=== PATIENT | male | born 1975 | race Caucasian/White ===

== ENCOUNTER 2017-02-18 11:12 | Emergency (ER) | payer BC ==
[~2017-02-18] VITALS: Ht 182.9 cm; Wt 117.3 kg
[~2017-02-18 11:12] MED LIST: INSDGIPEN SC; INSU100I17 SC
[2017-02-18 11:15] VITALS: TEMP 36.5; Ht 182.9 cm; Wt 117.3 kg
[2017-02-18] MEDS ORDERED: INSPMPHMLG (11:27)
--- NOTE | 2017-02-18 12:04 | DIAGNOSTIC IMAGING REPORT ---
LEFT SHOULDER 3 VIEWS CLINICAL HISTORY: Left shoulder pain. No reported history of trauma. FINDINGS: 3 views of left shoulder are obtained. No prior studies are available for comparison at the time of dictation. The skeletal structures are well mineralized. No fracture or dislocation is seen. The glenohumeral and acromioclavicular joints appear preserved. The overlying soft tissues are within normal limits. Imaged left apical lung parenchyma appears clear. IMPRESSION: No acute bony abnormality is identified in the left shoulder. Electronically signed by: Kameron Dasilva M.D. 02/18/2017 12:02 PM Dictated Date/Time: 02/18/2017 12:01 PM
[2017-02-18 12:55] VITALS: BP 154/90; PULSE 84; O2SAT 97
--- NOTE | 2017-02-18 13:37 | EMERGENCY ROOM VISIT NOTE ---
History First contact with patient: 11:20 Chief Complaint: SHOULDER PAIN Stated Complaint: LEFT SHOULDER PAIN History of Present Illness The patient is a 42 year old male who presents to the Emergency Room with complaints of a left shoulder injury this morning around 6 AM at work. The patient was lying on the ground on his right side, and when he rolled over to use his left arm to stand up, he reports a sudden sharp pain in the top and posterior aspect of the shoulder. The patient reports that the pain has progressively worsened throughout the day, and currently rates his pain an 8 out of 10. He denies any seizures patient is or numbness of the left upper extremity. He denies any neck or back pain. The patient is mostly left hand dominant, but is ambidextrous in most activities. Review of Systems 10 system review was performed and was negative except for pertinent positives and negatives as indicated in history of present illness Family History FH: cancer FH: diabetes mellitus FH: heart disease Social History Smoking Status: Never Smoker Alcohol Use: occasionally Marital Status: Housing Status: lives with family Occupation Status: employed Current/Historical Medications Scheduled Insulin Human Lispro (Insulin Humalog Pump ), 1 EA N/A UD Allergies Coded Allergies: No Known Allergies (Unverified , 02/18/17) Physical Exam Vital Signs Date Time Temp Pulse Resp B/P Pulse Ox O2 Delivery O2 Flow Rate FiO2 02/18/17 12:55 84 16 154/90 97 02/18/17 11:15 36.5 89 20 144/85 97 Room Air Physical Exam CONSTITUTIONAL: Healthy and well nourished. Alert and oriented X 3 with positive affect. Patient does not appear in any acute distress. He was sleeping prior to my exam. HEENT: Normocephalic, atraumatic. Pupils equal, round and reactive. NECK: Full active range of motion without discomfort. RESPIRATORY: Clear to auscultation bilaterally with no wheezing, crackles, rhonchi or stridor. CARDIOVASCULAR: Regular rate and rhythm with no murmurs, rubs or gallops. MUSCULOSKELETAL: Examination of the left shoulder does not show any obvious edema or ecchymosis. He is generally tender across the acromioclavicular joint and posterior shoulder region. No focal tenderness through the bicipital groove or biceps musculature. Gentle range of motion does not worsen his discomfort. The patient has full passive range of motion, with active range of motion of approximately 90 of abduction and fourth flexion without significant discomfort. No tenderness to palpation through the triceps. Distal pulses are intact. Equal hand atm servicer bilaterally. INTEGUMENTARY: No rash or other significant dermatologic conditions noted. NEUROLOGIC: Left hand and fingers are sensory intact. Medical Decision & Procedures ER Provider Diagnostic Interpretation: My interpretation of left shoulder x-rays does not show any acute fractures, dislocation or significant degenerative change. Radiologist report is as follows: LEFT SHOULDER 3 VIEWS CLINICAL HISTORY: Left shoulder pain. No reported history of trauma. FINDINGS: 3 views of left shoulder are obtained. No prior studies are available for comparison at the time of dictation. The skeletal structures are well mineralized. No fracture or dislocation is seen. The glenohumeral and acromioclavicular joints appear preserved. The overlying soft tissues are within normal limits. Imaged left apical lung parenchyma appears clear. IMPRESSION: No acute bony abnormality is identified in the left shoulder. ED Course Patient history and physical exam were performed. Nurse's notes were reviewed. The patient refused any analgesics while in the emergency department. X-rays of the left shoulder were normal. The patient was advised that history and clinical exam findings are consistent with a shoulder strain. He was encouraged to intermittently apply ice to the shoulder. Gentle range of motion exercises to prevent stiffness. Ibuprofen and Tylenol in alternating fashion as needed for additional pain relief. The patient was provided a note for light duty, and encouraged to follow up with his Worker's Compensation approved orthopedic surgeon if symptoms are not significantly improving within the next 2 -3 days. The patient was happy with plan of care, voice understanding of all discharge instructions, and rated his pain a 5 out of 10 at the conclusion of my exam. Medical Decision Impression Primary Impression: Left shoulder strain Additional Impression: Work related injury Departure Information Referrals Elaine Cassidy PA-C (PCP) Patient Instructions My [facility] Problem Qualifiers Primary Impression: Left shoulder strain Encounter type: initial encounter Qualified Codes: S46.912A - Strain of unspecified muscle, fascia and tendon at shoulder and upper arm level, left arm , initial encounter
== END 2017-02-18 12:56 | disposition home or self-care (01) ==
LOC: C.EDB 11:17 → C.EDD 12:56
DX: S46.912A Strain of unspecified muscle, fascia and tendon at shoulder and upper arm level, left arm, initial encounter (principal); X50.0XXA Overexertion from strenuous movement or load, initial encounter; Y99.0 Civilian activity done for income or pay; Z80.9 Family history of malignant neoplasm, unspecified; Z83.3 Family history of diabetes mellitus; Z96.41 Presence of insulin pump (external) (internal)

== ENCOUNTER → 2017-07-19 | Outpatient (CLI) | payer BC ==
[~2017-07-19] MED LIST changes: -INSDGIPEN SC; +INSPMPHMLG; -INSU100I17 SC
[2017-07-19 13:36] LABS: ESTIMATED AVERAGE GLUCOSE 166 mg/dl; HA1C FLAG Normal (Normal)
[2017-07-19 13:45] LABS: CHOLESTEROL/HDL RATIO 3.7
[2017-07-19 13:53] LABS: RATIO 5.3 mcg/mg (0-30.0)
== END | disposition home or self-care (01) ==
LOC: C.LAB 12:09
PROVIDERS: ATTEND Nurse Practitioner Adult Health
DX: E10.65 Type 1 diabetes mellitus with hyperglycemia (principal); E10.40 Type 1 diabetes mellitus with diabetic neuropathy, unspecified; M79.1 Myalgia; M60.9 Myositis, unspecified

== ENCOUNTER → 2018-01-31 | Outpatient (CLI) | payer OTHER ==
[2018-01-31 12:39] LABS: HEMOGLOBIN A1C 6.4 % (4.5-5.6)
== END | disposition home or self-care (01) ==
LOC: C.LAB1850 11:14
PROVIDERS: ATTEND Nurse Practitioner Adult Health
DX: E10.40 Type 1 diabetes mellitus with diabetic neuropathy, unspecified (principal); E78.5 Hyperlipidemia, unspecified; E55.9 Vitamin D deficiency, unspecified

== ENCOUNTER → 2018-03-19 | Outpatient (CLI) | payer OTHER ==
--- NOTE | 2018-03-19 11:38 | DIAGNOSTIC IMAGING REPORT ---
R KNEE 1 OR 2 VIEWS ROUTINE, L KNEE 1 OR 2 VIEWS ROUTINE HISTORY: 43 years-old Male JOINT PAIN, RIGHT KNEE acute bilateral knee pain COMPARISON: None available TECHNIQUE: 2 views of the bilateral knees FINDINGS: RIGHT: There is no acute fracture, dislocation, osteochondral defect or significant degenerative changes. There is minimal marginal spurring about the superior patella. No large joint effusion or opaque foreign body. Peripheral arterial calcifications. LEFT: No acute fracture, dislocation, osteochondral defect or significant degenerative changes. There is very minimal marginal spurring about the patella. Peripheral arterial calcifications are noted. No large joint effusion or opaque foreign body. IMPRESSION: 1. No acute fracture or dislocation. 2. Peripheral arterial disease. The above report was generated using voice recognition software. It may contain grammatical, syntax or spelling errors. Electronically signed by: Fabian Lim M.D. 03/19/2018 11:37 AM Dictated Date/Time: 03/19/2018 11:35 AM
--- NOTE | 2018-03-19 13:16 | DIAGNOSTIC IMAGING REPORT ---
AP PELVIS, LEFT HIP 2 VIEWS CLINICAL HISTORY: Left hip pain. COMPARISON STUDY: None. FINDINGS: No fracture or dislocation within the pelvis or hips. The sacrum is intact. Cartilage spaces are maintained for age. Soft tissues are within normal limits. Tiny marginal osteophytes within the left hip. IMPRESSION: Tiny marginal osteophytes within the left hip consistent with minimal degenerative change. No fracture or dislocation within the pelvis or hips. Electronically signed by: Hakeem Do M.D. 03/19/2018 1:14 PM Dictated Date/Time: 03/19/2018 1:11 PM
== END | disposition home or self-care (01) ==
LOC: C.RAD 10:58
PROVIDERS: ATTEND Physician Assistant
DX: M25.552 Pain in left hip (principal); M25.562 Pain in left knee; M25.561 Pain in right knee; M25.752 Osteophyte, left hip

== ENCOUNTER 2019-03-18 10:38 | Inpatient (IN) ==
--- OUTSIDE RECORDS SUMMARY | 2019-03-18 10:44 | External Medical Summary | Continuity of Care Document ---
:1975 Author Name Jessica Estrada, Provider Address Unavailable Unavailable , Care Team Providers Name Role Phone Jossue Emily GOLDMAN Unavailable [email or web address] Unavailable Unavailable Unavailable Unavailable Unavailable Problems Tinea pedis (110.4) (B35.3) Insomnia (780.52) (G47.00) Myalgia and myositis (729.1) Severe non-proliferative diabetic retinopathy (250.50) (E11. 3499) Controlled type 1 diabetes mellitus with retinopathy, with long-term current use of insulin (250.51) (E10.319) Alteration in tactile sense (782.0) (R20.9) Callus of foot (700) (L84) Counseling for insulin pump (V65.46) (Z46.81) Diabetic peripheral neuropathy (250.60) (E11.42) Insulin pump in place (V45.85) (Z96.41) Obesity (BMI 30.0-34.9) (278.00) (E66.9) Smokeless tobacco use (305.1) (Z72.0) Current tobacco use (305.1) (Z72.0) Dyslipidemia (272.4) (E78.5) Vitamin D deficiency (268.9) (E55.9) Controlled type 1 diabetes mellitus with diabetic neuropathy, with long-term current use of insulin (250.61) (E10.40) Allergies and Adverse Reactions Penicillins (Allergy) Medications Vitamin D (Ergocalciferol) 65757 UNIT Oral Capsule; TA KE 1 CAPSULE WEEKLY. JossueSUSI Start: 27-Oct-2018 Quantity: 14 Refills: 3 Aspirin EC 81 MG Oral Tablet Delayed Release; TAKE 1 T ABLET DAILY. JossueSUSI Start: 27-Oct-2018 Refills: 0 Atorvastatin Calcium 20 MG Oral Tablet; TAKE 1 TABLET AT BEDTIME. SUSI Marcum Start: 27-Oct-2018 Quantity: 90 Refills: 3 OneTouch Ultra Blue In Vitro Strip; TEST 4 TIMES A DAY DI RECTED Start: 26-Apr-2016 Quantity: 4 100 Strip Box Refills: 1 HumaLOG 100 UNIT/ML Subcutaneous Solutio n; Use with insulin pump - total daily dose of 130 to 140 units SUSI Marcum Start: 18-Feb-2018 Quantity: 5 10 ML Vial Refills: 5 buPROPion HCl ER (Smoking Det) 150 MG Or al Tablet Extended Release 12 Hour; Take one tablet daily for three days, the one tablet twice daily SUSI Marcum Start: 24-Oct-2018 Quantity: 60 Refills: 5 Procedures Procedures not documented Immunizations Immunizations not documented Family History Father Family history of cardiac disorder (V17.49) (Z82.49) Status: Active Mother Family history of type 1 diabetes mellitus (V18.0) (Z83.3) S tatus: Active Sister Family history of type 1 diabetes mellitus (V18.0) (Z83.3) S tatus: Active Social History - Smoking Status Former smoker Plan of Treatment Planned Observations Planned Goals not documented Results No Known Results Results not documented Encounters Appointment; Emily Marcum CRNP 24-Oct-2018 9:00 Encounter Diagnosis: Problem not documented Appointment; Emily Marcum CRNP 23-Jun-2018 17:30 Encounter Diagnosis: Problem not documented Appointment; Emily Marcum CRNP 17-Feb-2018 17:30 Encounter Diagnosis: Problem not documented Appointment; Emily Marcum CRNP 06-Aug-2017 15:30 Encounter Diagnosis: Problem not documented Appointment; Laura Soriano R.D. 31-May-2017 10:00 Encounter Diagnosis: Problem not documented Appointment; Laura Soriano R.D. 29-Apr-2017 16:00 Encounter Diagnosis: Problem not documented Appointment; Emily Marcum CRNP 15-Apr-2017 11:30 Encounter Diagnosis: Problem not documented Appointment; Emily Marcum CRNP 13-Mar-2019 9:00 Encounter Diagnosis: Problem not documented
[2019-03-18] MEDS ORDERED: SODIUM CHLORIDE 0.9% 1000ML 2,000 ML IV ONE (11:22)
[2019-03-18] MEDS ORDERED: KETOROLAC 30 MG/ML VIAL IV STA (11:22)
--- NOTE | 2019-03-18 11:53 | XRay Report ---
XR foot LT min 3V routine CLINICAL HISTORY: ulcer L Great toe ? osteo pain. Infection. COMPARISON: None. DISCUSSION: Soft tissue ulceration overlying the left great toe. There are destructive changes involv ing the lateral margin base distal phalanx. Given the history of infection this is suggestive of oste omyelitis. The remaining bony structures are intact. IMPRESSION: 1. Soft tissue ulceration overlying the distal phalanx of the great toe. 2. This is associated with bony destructive change involving the base of the distal phalanx consisten t with that of osteomyelitis The above report was generated using voice recognition software. It may contain grammatical, syntax or spelling errors. Electronically signed by: Tyler Florian M.D. 03/18/2019 11:52 AM
[2019-03-18 11:57] LABS: INR 1.2 (0.9-1.1); Prothrombin Time 12.4 Seconds (9.0-12.0)
[2019-03-18 11:59] LABS: Basophils # (auto) 0.04 K/uL (0-0.2); Basophils % (auto) 0.2 %; Eosinophils # (auto) 0.02 K/uL (0-0.5); Eosinophils % (auto) 0.1 %; Hemoglobin 14.6 g/dL (14.0-18.0); Immature Granulocytes # (auto) 0.08 K/uL (0.00-0.02); Immature Granulocytes % (auto) 0.5 %; Lymphocytes # (auto) 1.23 K/uL (1.2-3.4); Lymphocytes % (auto) 7.2 %; Mean Corpuscular Hgb Conc 34.8 g/dL (32-36); Mean Corpuscular Volume 89.7 fL (80-100); Mean Platelet Volume 10.8 fL (7.4-10.4); Monocytes # (auto) 2.01 K/uL (0.11-0.59); Monocytes % (auto) 11.7 %; Neutrophils # (auto) 13.79 K/uL (1.4-6.5); Neutrophils % (auto) 80.3 %; Platelet Count 185 K/uL (130-400); RDW Coefficient of Variation 12.7 % (11.5-14.5); RDW Standard Deviation 41.2 fL (36.4-46.3); Red Blood Count 4.68 M/uL (4.7-6.1); White Blood Count 17.17 K/uL (4.8-10.8)
[2019-03-18 12:03] LABS: Albumin Level 2.9 gm/dl (3.4-5.0); BUN Creatinine Ratio 17.2 (10-20); Calcium 8.6 mg/dl (8.5-10.1); Creatinine Clr Calc Pharmacy 123.9 ml/min; Est GFR (African American) 101.9; Est GFR (Non-African American) 87.9; Potassium 3.8 mmol/L (3.5-5.1)
[2019-03-18 12:12] LABS: Albumin Globulin Ratio 0.6 (0.9-2); Bilirubin,Total 1.1 mg/dl (0.2-1); C Reactive Protein 19.6 mg/dl (0-0.29); Globulin 4.5 gm/dl (2.5-4.0); Total Protein 7.4 gm/dl (6.4-8.2)
[2019-03-18] MEDS ORDERED: CEFEPIME 2,000 MG/20 ML VIAL IV STA (12:38)
[2019-03-18] MEDS ORDERED: VANCOMYCIN HCL 2,750 MG in SODIUM CHLORIDE 0.9% 500 ML IV ONE (12:38)
[2019-03-18] MEDS ORDERED: VANCOMYCIN CONSULT ACTIVE PRN ×2 (12:38→15:39)
--- NOTE | 2019-03-18 12:48 | Emergency Department Note ---
History of Present Illness General Chief complaint: Toe Injury/Pain Stated complaint: LEFT TOE APIN Time Seen by Provider: 03/18/19 11:01 History of Present Illness Maximum Pain Intensity: 5 This patient is a 44-year-old male who presents to the emergency department ambulatory for evaluation of a left toe infection that has been going on for the last several days. The patient has a history of diabetes. He has had a chronic wound to the left toe since 2017. He reports pulling a scab off of the toe 4 days ago. He noted the redness, swelling and pain got significantly worse since then. The patient has also felt feverish with body aches, lightheadedness and nausea. He has not taken anything for his pain. His blood sugars have been hovering around 200s. His pain is worse with any weightbearing. He describes it as a throbbing sensation and rates his discomfort a 5/10. Home Medications Home Medications Medication Instructions Recorded Confirmed Type insulin lispro [Humalog U-100 130 - 140 units SUBCUT DIRECTED 03/18/19 03/18/19 History Insulin] Allergies Allergy/AdvReac Type Severity Reaction Status Date / Time Penicillins Allergy Rash Unverified 03/18/19 12:51 Past Med/Surg History Medical History Dyslipidemia (Chronic) Diabetes (Chronic) Social History Preferred Language: Stateless Communication Ability: Effective Manager Fine Required: No Beliefs That Will Affect Care: None Current Living Situation: Spouse current occupational status: employed Other Information That Helps Us Care for You: No Feels Safe at Home: Yes Safety Concerns: Feels Safe At This Time Smoking Status: Current every day smoker Tobacco Type: cigarettes Cigarettes Per Day: 20 Do You Dip or Chew Tobacco: No Second Hand Exposure: Yes Tobacco Cessation Education Requested by Patient: No Hx Alcohol Use: Yes Alcohol type: beer and hard liquor Hx Substance Use: No Review of Systems A total of 10 systems reviewed and were otherwise negative Physical Exam Vital Signs Vital Signs - 24 hr 03/18/19 10:42 03/18/19 10:44 03/18/19 12:59 Temperature 36.8 C Temperature Source Oral Oral Sepsis Recent Fever Within 48 Hours No Sepsis Action Taken by Nursing No Action Required Pulse Rate 97 H Pulse Rate [Apical] 77 Pulse Rate [Right Finger] Pulse Rhythm Regular Pulse Rhythm [Right Finger] Pulse Strength Normal Pulse Strength [Right Finger] Respiratory Rate 16 16 Respiratory Effort / Characteristics Non-Labored Respiratory Depth Normal Respiratory Pattern Regular Blood Pressure 136/75 Blood Pressure [Left Arm] 108/54 L Blood Pressure Mean 95 Blood Pressure Mean [Left Arm] 72 Blood Pressure Position Sitting Blood Pressure Position [Left Arm] Pulse Oximetry 97 97 Oxygen Delivery Method Room Air Room Air 03/18/19 14:01 03/18/19 15:37 03/18/19 15:42 Temperature 37.3 C 37.2 C 37.2 C Temperature Source Oral Oral Oral Sepsis Recent Fever Within 48 Hours Sepsis Action Taken by Nursing Pulse Rate Pulse Rate [Apical] 75 77 Pulse Rate [Right Finger] 77 Pulse Rhythm Pulse Rhythm [Right Finger] Regular Pulse Strength Pulse Strength [Right Finger] Normal Respiratory Rate 20 20 16 Respiratory Effort / Characteristics Non-Labored Spontaneous Non-Labored Spontaneous Respiratory Depth Normal Normal Normal Respiratory Pattern Regular Regular Blood Pressure Blood Pressure [Left Arm] 121/68 110/66 110/66 Blood Pressure Mean Blood Pressure Mean [Left Arm] 85 80 80 Blood Pressure Position Blood Pressure Position [Left Arm] Sitting Sitting Sitting Pulse Oximetry 97 98 98 Oxygen Delivery Method Room Air Room Air Room Air 03/18/19 15:45 03/18/19 15:57 03/18/19 23:03 Temperature 39.4 C H Temperature Source Oral Sepsis Recent Fever Within 48 Hours Sepsis Action Taken by Nursing Pulse Rate Pulse Rate [Apical] Pulse Rate [Right Finger] 90 Pulse Rhythm Pulse Rhythm [Right Finger] Pulse Strength Pulse Strength [Right Finger] Respiratory Rate 16 Respiratory Effort / Characteristics Non-Labored Spontaneous Respiratory Depth Normal Respiratory Pattern Regular Blood Pressure Blood Pressure [Left Arm] 143/72 H Blood Pressure Mean Blood Pressure Mean [Left Arm] 95 Blood Pressure Position Blood Pressure Position [Left Arm] Lying Pulse Oximetry 93 Oxygen Delivery Method Room Air Room Air Room Air Constitutional WD/WN, vitals as above Eyes EOM intact bilaterally ENMT external ear and nose normal, oropharynx normal Neck trachea midline Respiratory normal respiratory effort, lungs clear to auscultation Cardiovascular RRR, no murmur, no edema Gastrointestinal (Abdomen) normal bowel sounds, soft, nontender, no hepatosplenomegaly Musculoskeletal Significant erythema noted of the left great toe extending proximally into the dorsum of the foot. There is an approximately 1 cm diabetic ulcer on the pad of the left toe. There is also a necrotic area on the medial aspect of the left toe. Foul odor noted. Skin Ulcer as noted above Neurologic Alert and oriented x3. No focal motor deficits. Psychiatric Acting appropriately Course Patient was seen and examined Vital signs including blood pressure were reviewed medications list was verified with patient Labs were obtained, and a saline lock was established Patient was ordered Toradol 30 mg IV and 2 L normal saline Imaging was performed and reviewed The patient was ordered vancomycin and cefepime IV The case was discussed with my supervising physician The patient was reassessed. The pain was improved, however it was coming back. He was ordered morphine 4 mg IV. We discussed his work-up. He voiced understanding. The case was discussed with case management and subsequently the hospitalist service. They will evaluate patient for possible inpatient management. Consultations Consultation #1: Dr. Palencia Administered Medications Acetaminophen (Tylenol) 650 mg PO Q4H PRN PRN Reason: pain/fever Stop: 04/17/19 15:38 Last Admin: 03/18/19 23:57 Dose: 650 mg Documented by: [id number] Glucose (Dex4 Glucose) 4 - 8 tabs PO UD PRN; Protocol PRN Reason: Hypoglycemia Protocol Stop: 04/17/19 16:44 Last Admin: 03/18/19 17:54 Dose: 4 tabs Documented by: [id number] Heparin Sodium (Porcine) (Heparin Sodium (Porcine)) 5,000 units SQ Q8 CLIVE Stop: 04/17/19 21:59 Last Admin: 03/18/19 20:56 Dose: 5,000 units Documented by: [id number] Cosigned by: [id number] Potassium Chloride/Sodium Chloride (Normal Saline W/20 Meq Kcl) 20 meq in 1,000 mls @ 100 mls/hr IV .Q10H CLIVE Stop: 03/19/19 00:59 Last Admin: 03/18/19 16:09 Dose: 100 mls/hr Documented by: [id number] Vancomycin HCl 1,750 mg/ (Sodium Chloride) 535 mls @ 200 mls/hr IV Q8H CLIVE; Protocol Stop: 04/29/19 19:59 Last Infusion: 03/18/19 23:53 Dose: 0 mls/hr Documented by: [id number] Admin: 03/18/19 20:56 Dose: 200 mls/hr Documented by: [id number] Cefepime HCl 1,000 mg/ Syringe 11.3 mls @ 5.5 mls/min IV Q8H CLIVE; Protocol Stop: 03/28/19 20:59 Last Admin: 03/18/19 20:56 Dose: 5.5 mls/min Documented by: [id number] Insulin Human Lispro (Humalog Insulin Pump) 1 ea N/A ACHS CLIVE; Protocol Stop: 04/17/19 20:59 Last Admin: 03/18/19 21:21 Dose: 1 ea Documented by: [id number] Miscellaneous (Remove Nicoderm Patch) 1 ea N/A HS CLIVE Stop: 04/17/19 20:59 Last Admin: 03/18/19 20:56 Dose: 1 ea Documented by: [id number] Morphine Sulfate (Morphine Sulfate) 4 mg IV Q4H PRN PRN Reason: Pain Stop: 04/01/19 19:33 Last Admin: 03/18/19 19:41 Dose: 4 mg Documented by: [id number] Nicotine (Nicoderm Cq) 21 mg TD DAILY PRN PRN Reason: nicotine craving Stop: 04/17/19 14:49 Last Admin: 03/18/19 16:09 Dose: 21 mg Documented by: [id number] Tramadol HCl (Ultram) 50 mg PO Q4H PRN PRN Reason: Pain Stop: 04/17/19 15:38 Last Admin: 03/18/19 17:30 Dose: 50 mg Documented by: [id number] Discontinued Medications Sodium Chloride (Nss 1000ml) 2,000 mls @ 999 mls/hr IV .Q2H1M ONE Stop: 03/18/19 13:22 Last Infusion: 03/18/19 13:47 Dose: 0 mls/hr Documented by: [id number] Admin: 03/18/19 11:34 Dose: 999 mls/hr Documented by: [id number] Vancomycin HCl 2,750 mg/ (Sodium Chloride) 555 mls @ 200 mls/hr IV NOW ONE; Protocol Stop: 03/18/19 15:24 Last Infusion: 03/18/19 16:03 Dose: 0 mls/hr Documented by: [id number] Admin: 03/18/19 12:57 Dose: 200 mls/hr Documented by: [id number] Cefepime HCl (Maxipime) 2,000 mg in 20 mls @ 5 mls/min IV NOW STA; Protocol Stop: 03/18/19 12:41 Last Admin: 03/18/19 12:54 Dose: 5 mls/min Documented by: [id number] Ketorolac Tromethamine (Toradol) 30 mg IV NOW STA Stop: 03/18/19 11:23 Last Admin: 03/18/19 11:34 Dose: 30 mg Documented by: [id number] Morphine Sulfate (Morphine Sulfate) 4 mg IV NOW STA Stop: 03/18/19 13:52 Last Admin: 03/18/19 14:00 Dose: 4 mg Documented by: [id number] Medical Decision Making Medical Records Attestation: I reviewed the patient's medical records. Home Medications Current Medication List: was personally reviewed by me Laboratory Data Attestation: I reviewed the patient's lab results. Result diagrams: 03/18/19 11:20 03/18/19 11:20 Lab Results 03/18/19 03/18/19 03/18/19 Range/Units 11:20 11:20 11:20 WBC 17.17 H (4.8-10.8) K/uL RBC 4.68 L (4.7-6.1) M/uL Hgb 14.6 (14.0-18.0) g/dL Hct 42.0 (42-52) % MCV 89.7 (80-100) fL MCH 31.2 (25-34) pg MCHC 34.8 (32-36) g/dL RDW Std Deviation 41.2 (36.4-46.3) fL RDW Coeff of Kaden 12.7 (11.5-14.5) % Plt Count 185 (130-400) K/uL MPV 10.8 H (7.4-10.4) fL Immature Gran % (Auto) 0.5 % Neut % (Auto) 80.3 % Lymph % (Auto) 7.2 % [place] % (Auto) 11.7 % Eos % (Auto) 0.1 % Baso % (Auto) 0.2 % Immature Gran # (Auto) 0.08 H (0.00-0.02) K/uL Neut # (Auto) 13.79 H (1.4-6.5) K/uL Lymph # (Auto) 1.23 (1.2-3.4) K/uL [place] # (Auto) 2.01 H (0.11-0.59) K/uL Eos # (Auto) 0.02 (0-0.5) K/uL Baso # (Auto) 0.04 (0-0.2) K/uL ESR 58 H (0-14) mm/hr PT 12.4 H (9.0-12.0) Seconds INR 1.2 H (0.9-1.1) Sodium (136-145) mmol/L Potassium (3.5-5.1) mmol/L Chloride (98-107) mmol/L Carbon Dioxide (21-32) mmol/L Anion Gap (3-11) BUN (7-18) mg/dl Creatinine (0.6-1.4) mg/dl Est Cr Clr Drug Dosing ml/min Est GFR ( Amer) Est GFR (Non-Af Amer) BUN/Creatinine Ratio (10-20) Glucose (70-99) mg/dl POC Glucose (70-99) Lactate (0.4-2.0) mmol/L Calcium (8.5-10.1) mg/dl Total Bilirubin (0.2-1) mg/dl AST (15-37) U/L ALT (12-78) U/L Alkaline Phosphatase (45-117) U/L C-Reactive Protein (0-0.29) mg/dl Total Protein (6.4-8.2) gm/dl Albumin (3.4-5.0) gm/dl Globulin (2.5-4.0) gm/dl Albumin/Globulin Ratio (0.9-2) Procalcitonin (0-0.5) ng/ml 03/18/19 03/18/19 03/18/19 Range/Units 11:20 11:20 11:20 WBC (4.8-10.8) K/uL RBC (4.7-6.1) M/uL Hgb (14.0-18.0) g/dL Hct (42-52) % MCV (80-100) fL MCH (25-34) pg MCHC (32-36) g/dL RDW Std Deviation (36.4-46.3) fL RDW Coeff of Kaden (11.5-14.5) % Plt Count (130-400) K/uL MPV (7.4-10.4) fL Immature Gran % (Auto) % Neut % (Auto) % Lymph % (Auto) % [place] % (Auto) % Eos % (Auto) % Baso % (Auto) % Immature Gran # (Auto) (0.00-0.02) K/uL Neut # (Auto) (1.4-6.5) K/uL Lymph # (Auto) (1.2-3.4) K/uL [place] # (Auto) (0.11-0.59) K/uL Eos # (Auto) (0-0.5) K/uL Baso # (Auto) (0-0.2) K/uL ESR (0-14) mm/hr PT (9.0-12.0) Seconds INR (0.9-1.1) Sodium 134 L (136-145) mmol/L Potassium 3.8 (3.5-5.1) mmol/L Chloride 101 (98-107) mmol/L Carbon Dioxide 27 (21-32) mmol/L Anion Gap 6.0 (3-11) BUN 18 (7-18) mg/dl Creatinine 1.03 (0.6-1.4) mg/dl Est Cr Clr Drug Dosing 123.9 ml/min Est GFR ( Amer) 101.9 Est GFR (Non-Af Amer) 87.9 BUN/Creatinine Ratio 17.2 (10-20) Glucose 107 H (70-99) mg/dl POC Glucose (70-99) Lactate 1.1 (0.4-2.0) mmol/L Calcium 8.6 (8.5-10.1) mg/dl Total Bilirubin 1.1 H (0.2-1) mg/dl AST 13 L (15-37) U/L ALT 17 (12-78) U/L Alkaline Phosphatase 83 (45-117) U/L C-Reactive Protein 19.60 H (0-0.29) mg/dl Total Protein 7.4 (6.4-8.2) gm/dl Albumin 2.9 L (3.4-5.0) gm/dl Globulin 4.5 H (2.5-4.0) gm/dl Albumin/Globulin Ratio 0.6 L (0.9-2) Procalcitonin 1.77 H (0-0.5) ng/ml 03/18/19 03/18/19 03/18/19 Range/Units 17:46 17:48 18:03 WBC (4.8-10.8) K/uL RBC (4.7-6.1) M/uL Hgb (14.0-18.0) g/dL Hct (42-52) % MCV (80-100) fL MCH (25-34) pg MCHC (32-36) g/dL RDW Std Deviation (36.4-46.3) fL RDW Coeff of Kaden (11.5-14.5) % Plt Count (130-400) K/uL MPV (7.4-10.4) fL Immature Gran % (Auto) % Neut % (Auto) % Lymph % (Auto) % [place] % (Auto) % Eos % (Auto) % Baso % (Auto) % Immature Gran # (Auto) (0.00-0.02) K/uL Neut # (Auto) (1.4-6.5) K/uL Lymph # (Auto) (1.2-3.4) K/uL [place] # (Auto) (0.11-0.59) K/uL Eos # (Auto) (0-0.5) K/uL Baso # (Auto) (0-0.2) K/uL ESR (0-14) mm/hr PT (9.0-12.0) Seconds INR (0.9-1.1) Sodium (136-145) mmol/L Potassium (3.5-5.1) mmol/L Chloride (98-107) mmol/L Carbon Dioxide (21-32) mmol/L Anion Gap (3-11) BUN (7-18) mg/dl Creatinine (0.6-1.4) mg/dl Est Cr Clr Drug Dosing ml/min Est GFR ( Amer) Est GFR (Non-Af Amer) BUN/Creatinine Ratio (10-20) Glucose (70-99) mg/dl POC Glucose 62 L* 66 L* 80 (70-99) Lactate (0.4-2.0) mmol/L Calcium (8.5-10.1) mg/dl Total Bilirubin (0.2-1) mg/dl AST (15-37) U/L ALT (12-78) U/L Alkaline Phosphatase (45-117) U/L C-Reactive Protein (0-0.29) mg/dl Total Protein (6.4-8.2) gm/dl Albumin (3.4-5.0) gm/dl Globulin (2.5-4.0) gm/dl Albumin/Globulin Ratio (0.9-2) Procalcitonin (0-0.5) ng/ml 03/18/19 Range/Units 21:10 WBC (4.8-10.8) K/uL RBC (4.7-6.1) M/uL Hgb (14.0-18.0) g/dL Hct (42-52) % MCV (80-100) fL MCH (25-34) pg MCHC (32-36) g/dL RDW Std Deviation (36.4-46.3) fL RDW Coeff of Kaden (11.5-14.5) % Plt Count (130-400) K/uL MPV (7.4-10.4) fL Immature Gran % (Auto) % Neut % (Auto) % Lymph % (Auto) % [place] % (Auto) % Eos % (Auto) % Baso % (Auto) % Immature Gran # (Auto) (0.00-0.02) K/uL Neut # (Auto) (1.4-6.5) K/uL Lymph # (Auto) (1.2-3.4) K/uL [place] # (Auto) (0.11-0.59) K/uL Eos # (Auto) (0-0.5) K/uL Baso # (Auto) (0-0.2) K/uL ESR (0-14) mm/hr PT (9.0-12.0) Seconds INR (0.9-1.1) Sodium (136-145) mmol/L Potassium (3.5-5.1) mmol/L Chloride (98-107) mmol/L Carbon Dioxide (21-32) mmol/L Anion Gap (3-11) BUN (7-18) mg/dl Creatinine (0.6-1.4) mg/dl Est Cr Clr Drug Dosing ml/min Est GFR ( Amer) Est GFR (Non-Af Amer) BUN/Creatinine Ratio (10-20) Glucose (70-99) mg/dl POC Glucose 168 H (70-99) Lactate (0.4-2.0) mmol/L Calcium (8.5-10.1) mg/dl Total Bilirubin (0.2-1) mg/dl AST (15-37) U/L ALT (12-78) U/L Alkaline Phosphatase (45-117) U/L C-Reactive Protein (0-0.29) mg/dl Total Protein (6.4-8.2) gm/dl Albumin (3.4-5.0) gm/dl Globulin (2.5-4.0) gm/dl Albumin/Globulin Ratio (0.9-2) Procalcitonin (0-0.5) ng/ml Imaging Data Attestation: I personally reviewed and interpreted this imaging study as follows: Radiologist's Impression: Foot x-ray IMPRESSION: 1. Soft tissue ulceration overlying the distal phalanx of the great toe. 2. This is associated with bony destructive change involving the base of the distal phalanx consistent with that of osteomyelitis The above report was generated using voice recognition software. It may contain grammatical, syntax or spelling errors. Electronically signed by: Tyler Florian M.D. 03/18/2019 11:52 AM Dictated: 03/18/19 1150 Transcribed: 03/18/19 1150 Blood Pressure Blood Pressure Findings: Normal blood pressure MDM Narrative Differential diagnosis: Diabetic foot ulcer, cellulitis, osteomyelitis, sepsis, among others This patient is a 44-year-old male who presents to the emergency department with a severe infection of a diabetic foot ulcer on the left great toe. Work-up reveals leukocytosis. Inflammatory markers are elevated. X-ray is concerning for osteomyelitis. For this reason, hospitalist consultation was felt appropriate. He was covered with broad-spectrum antibiotics in the emergency department. Hospitalist will evaluate the patient for possible inpatient management. Impression & Plan Osteomyelitis Discharge Plan Visit Data *Final* Discharge Date/Time: 03/18/19 15:57 Chief Complaint: Toe Injury/Pain Stated Complaint: LEFT TOE APIN ED Provider: Parag Thomas ED Midlevel Provider: Saray White Discharge Problem: Osteomyelitis Patient Disposition: Admitted As Inpatient Condition: Fair Discharge Instructions Interventions: ED Discharge Assessment Last Done: 03/18/19 15:57 Discharge Problem: Osteomyelitis Qualifiers: Osteomyelitis location: foot Laterality: left
[2019-03-18] MEDS ORDERED: MoRPHine SULFATE 4 MG/ML 1 ML CARP\\VIAL IV STA (13:51)
--- NOTE | 2019-03-18 14:28 | History & Physical Report ---
Date of Service March 18, 2019 Assessment & Plan (1) Osteomyelitis: 44 y/o M Hx DM I, prior LE ulcer, smoker. Presents with a purulent ulcerating infection of his L great toe x 2 weeks. He states that he had been treated in a wound clinic in 2017 for an ulcer in the same area. He noticed liliya thema spreading over his foot extending from the area over the past few days. He has not had fevers, rigors or additional systemic symptoms. Initial labs are not notable for leukocytosis only. A CXR of the foot appears to confirm osteomyelitis. 1) Osteomyelitis L great toe and cellulitis. Placed on Ceftriaxone and Vanc, wound cultured, orthopedics consulted. 2) DM I - placed on a SS - this is reasonably well-controlled as his last A1C was 6.8 3) Smoker - does not display interest in cessation - patch provided PRN Full code - Heparin prophylaxis Total time for this admit including review of labs, meds, imaging, records - discussion with pt and ER attending - 38 min Present on Admission?: Yes History of Present Illness Chief Complaint: Infection of toe Primary Care Provider: NO PCP 44 y/o M Hx DM I, prior LE ulcer, smoker. Presents with a purulent ulcerating infection of his L great toe x 2 weeks. He states that he had been treated in a wound clinic in 2017 for an ulcer in the same area. He noticed erythema spreading over his foot extending from the area over the past few days. He has not had fevers, rigors or additional systemic symptoms. Initial labs are not notable for leukocytosis only. A CXR of the foot appears to confirm osteomyelitis. 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 Family: Father committed suicide Mother is alive without medical issues Allergies Allergy/AdvReac Type Severity Reaction Status Date / Time Penicillins Allergy Rash Unverified 03/18/19 12:51 Home Medications Home Medications Medication Instructions Recorded Confirmed Type insulin lispro [Humalog U-100 130 - 140 units SUBCUT DIRECTED 03/18/19 03/18/19 History Insulin] Past Med/Surg History Medical History Dyslipidemia (Chronic) Diabetes (Chronic) Social History Current Living Situation: Spouse and Family current occupational status: employed Feels Safe at Home: Yes Smoking Status: Current every day smoker Review of Systems Review of Systems: Gen: Denies fevers, night sweats, rigors, fatigue, malaise, weight loss/gain ENT: Denies congestion, throat pain, hearing loss Eyes: Denies acute visual changes CV: Denies CP, palpitations Pulmonary: Denies SOB, cough, wheezing GI: Denies N/V, diarrhea, constipation Neuro: Denies acute or unilateral weakness, acute gait impairment, headache or acute visual changes Musculoskeletal: Denies joint pain, inflammation Endocrine: Denies polydipsia, polyuria Skin: Ulcer with exudate - L great toe, erythema over foot Physical Exam Physical Exam: General: AAO x 3, no distress ENT: No erythema or exudates, no thrush Eyes: PILAR, EOMI Head and neck: Normocephalic, atraumatic, No JVD, neck is supple. Chest/heart: Nontender, S1,2, RRR, no murmurs, no gallops Lungs: CTAB, no wheezing or crackles Abdomen: Nontender, nondistended, BS+ Neuro: AAO x 3, speech is clear, no unilateral weakness or loss of sensation, coordination intact Musculoskeletal: No joint inflammation, muscle tenderness, FROM Skin: There is an ulcer with purulent, foul-smelling discharge over the L great toe, there is overlying necrotic skin. The foot is erythematous above the toes to the mid foot. Extremities: No clubbing, cyanosis - edema, erythema and ulcer of L foot as above - pulses palpable Results & Data Vital Signs (Past 12 Hours) Vital Signs Temp Pulse Pulse Resp BP BP Pulse Ox 03/18/19 14:01 99.1 F 75 20 121/68 97 03/18/19 12:59 77 16 108/54 L 97 03/18/19 10:42 98.2 F 97 H 16 136/75 97
[2019-03-18] MEDS ORDERED: NICOTINE 21 MG/24 HR TDSY TD PRN (14:50)
[2019-03-18] MEDS ORDERED: NSS + 20MEQ KCL 20 MEQ/1,000 ML BAG IV SCH (15:00)
[2019-03-18] MEDS ORDERED: POLYETHYLENE (MIRALAX) 17 GM PACK PO PRN (15:39)
[2019-03-18] MEDS ORDERED: ONDANSETRON INJ 2 MG/ML 2 ML VIAL IV PRN (15:39)
[2019-03-18] MEDS ORDERED: MAGNESIUM HYDROXIDE SUSP 30 ML UDC PO PRN (15:39)
[2019-03-18] MEDS ORDERED: ALUMINUM/MAGNESIUM SUSP 30 ML UDC PO PRN (15:39)
[2019-03-18] MEDS ORDERED: ZOLPIDEM TARTRATE 5 MG TAB PO PRN (15:39)
--- NOTE | 2019-03-18 16:14 | Pharmacy Report ---
Pharmacy Abx Initial Consult - Date of Service March 18, 2019 - Pharmacy Dosing Scope Date of Consult: 03/18/19 Consultation requested by: Dr. Palencia Pharmacy is consulted to initiate vancomycin IV dosing therapy, order appropriate labs and adjust drug dose/frequency. - Subjective The patient is a 44 year old M admitted on 03/18/19 14:25. - Objective Height: 6 ft 4 in Weight: 109 kg Vital Signs (Past 12hrs): Vital Signs Temp Pulse Pulse Pulse Resp BP BP 03/18/19 15:42 37.2 C 77 16 110/66 03/18/19 15:37 37.2 C 77 20 110/66 03/18/19 14:01 37.3 C 75 20 121/68 03/18/19 12:59 77 16 108/54 L 03/18/19 10:42 36.8 C 97 H 16 136/75 Pulse Ox 03/18/19 15:42 98 03/18/19 15:37 98 03/18/19 14:01 97 03/18/19 12:59 97 03/18/19 10:42 97 Lab Results (24hrs): Laboratory Tests (24 Hours) 03/18/19 03/18/19 03/18/19 11:20 11:20 11:20 WBC Neut # (Auto) ESR 58 H Creatinine 1.03 Est Cr Clr Drug Dosing 123.9 C-Reactive Protein 19.60 H Procalcitonin 1.77 H 03/18/19 11:20 WBC 17.17 H Neut # (Auto) 13.79 H ESR Creatinine Est Cr Clr Drug Dosing C-Reactive Protein Procalcitonin Micro Results: 03/18/19 11:30 Blood Culture - Pending Blood 03/18/19 11:20 Blood Culture - Pending Blood - Risk Factors for Resistance * wound clinic - Assessment & Plan Assessment 44 year old M admitted with worsening diabetic foot infection Plan vancomycin for treatment of diabetic foot infection Vancomycin IV * Estimated PK Parameters: Vd 0.7 L/kg, Morro 0.0874 hr-1, t1/2 7.9 hr * Loading dose: 2750 mg (25 mg/kg) * Maintenance dose: 1750 mg IV (15 mg/kg) every 8 hours * Goal trough level for diabetic foot infection : 15 mcg/mL * Trough ordered for 03/20/19 prior to 0400 dose * A less than traditional dose and/or extended dosing interval has/have been selected due to likelihood of drug accumulation in obese patient/patient with h/o CKD. Pharmacy will continue to follow and will adjust dose/frequency as necessary. Thank you.
[2019-03-18] MEDS ORDERED: INSULIN ASPART 100 UNITS/ML 3 ML PEN SC SCH (16:30)
[2019-03-18] MEDS ORDERED: GLUCOSE 40% GEL 15 GM TUBE PO PRN (16:45)
[2019-03-18] MEDS ORDERED: DEXTROSE 50% 50 ML SYRINGE IV PRN (16:45)
[2019-03-18] MEDS ORDERED: INSULIN HUMAN LISPRO (humaLOG) 100 UNITS/ML VIAL SC PRN (16:45)
[2019-03-18] MEDS ORDERED: GLUCAGON FOR INJ 1 MG VIAL SQ PRN (16:45)
[2019-03-18] MEDS: TRAMADOL HCL 50 MG TABLET PO PRN (17:30)
[2019-03-18] MEDS: GLUCOSE 10 TABS/TUBE PO PRN (17:54)
[2019-03-18] MEDS: MoRPHine SULFATE 4 MG/ML 1 ML CARP\\VIAL IV PRN (19:41)
[2019-03-18] MEDS: HEPARIN SOD 5,000 UNIT/0.5 ML VIAL SQ SCH (20:56)
[2019-03-18] MEDS: CEFEPIME 1,000 MG in SYRINGE 0 ML IV SCH (20:56)
[2019-03-18] MEDS: VANCOMYCIN HCL 1,750 MG in SODIUM CHLORIDE 0.9% 500 ML IV SCH (20:56)
[2019-03-18] MEDS: ACETAMINOPHEN 325 MG TAB PO PRN (23:57)
[2019-03-19] MEDS: CEFEPIME 1,000 MG in SYRINGE 0 ML IV SCH ×3 (04:49→21:41)
[2019-03-19] MEDS: VANCOMYCIN HCL 1,750 MG in SODIUM CHLORIDE 0.9% 500 ML IV SCH ×3 (04:49→19:41)
[2019-03-19] MEDS: HEPARIN SOD 5,000 UNIT/0.5 ML VIAL SQ SCH (05:17)
[2019-03-19] MEDS: ACETAMINOPHEN 325 MG TAB PO PRN ×2 (05:52→23:44)
--- NOTE | 2019-03-19 07:16 | Family Medicine Progress Note ---
Date of Service March 19, 2019 Assessment & Plan (1) Osteomyelitis: 44 y/o M Hx DM I, prior LE ulcer, smoker. Presents with a purulent ulcerating infection of his L great toe x 2 weeks. He states that he had been treated in a wound clinic in 2017 for an ulcer in the same area. He noticed liliya thema spreading over his foot extending from the area over the past few days. He has not had fevers, rigors or additional systemic symptoms. Initial labs are not notable for leukocytosis only. A CXR of the foot appears to confirm osteomyelitis. #Osteomyelitis L great toe and cellulitis -Placed on Ceftriaxone and Vanc -wound culture pending -orthopedics consulted, plan for LT great toe amputation. Will keep NPO after midnite. #DM I - this is reasonably well-controlled as his last A1C was 6.8. Did have some asymptomatic hypoglycemia this AM. -personal insulin pump DCd, pharmacy glycemic consult placed #Smoker -in contemplative stage, has tried bupropion but made his insomnia worse. Has not tried chantix yet -- would be willing to try, defer to PCP - patch provided PRN #Insomnia - sleep maintenance type / ?sleep apnea - has witnessed apneic events, pt complains of difficulty maintaining sleep -vistaril qhs prn -recommend PCP to order sleep study #Stress -Pt does state his father attempted suicide, and has significant psych history as well, she states she has attempted suicide, so pt does have some risk factors for stress, but denies depression or suicidality himself. FEN/GI: heart healthy/diabetic diet. NPO after midnight. DVT ppx: heparin held anticipating surgery CODE STATUS: full DISPO: med/surg for lt great toe amputation (2) Diabetes: (3) Dyslipidemia: (4) Smoker: (5) Insomnia: Supervising Physician Co-Signing Physician Notes Resident Physician Supervision Note: I independently interviewed and examined the patient and verified the turner histor y and physical, reviewed labs and image studies, discussed the case with the resident Dr. Valentine and agree with the findings and care plan. Subjective Seen and examined at the bedside this AM, Rodolfo present as well. Pt states he feels no pain in his left foot, even while ambulating. He verbalizes understanding that amputation would be a viable option for his osteomyelitis. corroborates that he has had an ongoing issue with an infected callus in his left great toe for many months, but that he probably was "not dealing with it" because of "all my health problems" going on. He denies depressive symptoms, but says he does have stress in his life. Of note, his father committed suicide. His states she suffers from depression and has attempted suicide herself. To deal with stress, he smokes. He says he is somewhat interested in quitting smoking, has tried bupropion but that didn't help. He also sufers from insomnia. Also snores, says he does stop breathing at times. He has never had a sleep study. otherwise tolerating PO, denies any other complaints like difficulty breathing or chest pain or fevers or chills. Risk factors identified: Pt does state his father attempted suicide, and has significant psych history as well, she states she has attempted suicide, so pt does have some risk factors for stress, but denies depression or suicidality himself. Review of Systems Review of Systems: All systems reviewed & are unremarkable except as noted in HPI & below Physical Exam Physical Exam: Vitals noted as above and within normal limits GENERAL: Awake, alert to person, place, and time, nontoxic-appearing, in no distress HENT: Normocephalic, atraumatic. Mucus membranes appear moist. EYES: Normal conjunctiva. Sclera non-icteric. EOMI. NECK: Supple. Full range of motion. No JVD RESPIRATORY: Clear to auscultation. Normal work of breathing. CARDIAC: Regular rate, normal rhythm. Extremities warm and well perfused, 2+ radial pulses bilaterally; 2+ posterior tibialis pulses bilaterally. ABDOMEN: Soft, non-distended. No tenderness to palpation in all four quadrants. No rebound or guarding. No masses. Bowel sounds are normal. LOWER EXTREMITIES: Inspection of calves reveal equal size bilaterally. They are non-tender. Trace edema in LLE with erythmea of left great toe, + odor, ulcer at base of left great toe with exudate. NEURO: No focal gross focal motor deficits noted. Sensation in tact. CN II-XII grossly in tact. SKIN: No jaundice noted. Significant lesions include left great toe ulcer with exudate and erythema. PSYCH: Flat affect. Cooperative. Exam as done by Renetta Valentine MD, Hr Director. Results & Data Vital Signs (Past 12 Hours) Vital Signs Temp Pulse Resp BP Pulse Ox 03/19/19 05:46 37.6 C H 03/19/19 02:16 39.2 C H 03/18/19 23:03 39.4 C H 90 16 143/72 H 93 Laboratory Results 03/19/19 03/19/19 03/19/19 Range/Units 12:08 09:00 08:58 WBC (4.8-10.8) K/uL RBC (4.7-6.1) M/uL Hgb (14.0-18.0) g/dL Hct (42-52) % MCV (80-100) fL MCH (25-34) pg MCHC (32-36) g/dL RDW Std Deviation (36.4-46.3) fL RDW Coeff of Kaden (11.5-14.5) % Plt Count (130-400) K/uL MPV (7.4-10.4) fL Immature Gran % (Auto) % Neut % (Auto) % Lymph % (Auto) % Nobles % (Auto) % Eos % (Auto) % Baso % (Auto) % Immature Gran # (Auto) (0.00-0.02) K/uL Neut # (Auto) (1.4-6.5) K/uL Lymph # (Auto) (1.2-3.4) K/uL Nobles # (Auto) (0.11-0.59) K/uL Eos # (Auto) (0-0.5) K/uL Baso # (Auto) (0-0.2) K/uL Sodium (136-145) mmol/L Potassium (3.5-5.1) mmol/L Chloride (98-107) mmol/L Carbon Dioxide (21-32) mmol/L Anion Gap (3-11) BUN (7-18) mg/dl Creatinine (0.6-1.4) mg/dl Est Cr Clr Drug Dosing ml/min Est GFR ( Amer) Est GFR (Non-Af Amer) BUN/Creatinine Ratio (10-20) Glucose (70-99) mg/dl POC Glucose 146 H 78 67 L* (70-99) Calcium (8.5-10.1) mg/dl Magnesium (1.8-2.4) mg/dl 03/19/19 03/19/19 03/19/19 Range/Units 08:38 08:36 08:19 WBC (4.8-10.8) K/uL RBC (4.7-6.1) M/uL Hgb (14.0-18.0) g/dL Hct (42-52) % MCV (80-100) fL MCH (25-34) pg MCHC (32-36) g/dL RDW Std Deviation (36.4-46.3) fL RDW Coeff of Kaden (11.5-14.5) % Plt Count (130-400) K/uL MPV (7.4-10.4) fL Immature Gran % (Auto) % Neut % (Auto) % Lymph % (Auto) % Nobles % (Auto) % Eos % (Auto) % Baso % (Auto) % Immature Gran # (Auto) (0.00-0.02) K/uL Neut # (Auto) (1.4-6.5) K/uL Lymph # (Auto) (1.2-3.4) K/uL Nobles # (Auto) (0.11-0.59) K/uL Eos # (Auto) (0-0.5) K/uL Baso # (Auto) (0-0.2) K/uL Sodium (136-145) mmol/L Potassium (3.5-5.1) mmol/L Chloride (98-107) mmol/L Carbon Dioxide (21-32) mmol/L Anion Gap (3-11) BUN (7-18) mg/dl Creatinine (0.6-1.4) mg/dl Est Cr Clr Drug Dosing ml/min Est GFR ( Amer) Est GFR (Non-Af Amer) BUN/Creatinine Ratio (10-20) Glucose (70-99) mg/dl POC Glucose 49 L* 50 L* 43 L* (70-99) Calcium (8.5-10.1) mg/dl Magnesium (1.8-2.4) mg/dl 03/19/19 03/19/19 03/19/19 Range/Units 08:18 06:45 06:45 WBC 11.92 H (4.8-10.8) K/uL RBC 4.30 L (4.7-6.1) M/uL Hgb 13.0 L (14.0-18.0) g/dL Hct 38.8 L (42-52) % MCV 90.2 (80-100) fL MCH 30.2 (25-34) pg MCHC 33.5 (32-36) g/dL RDW Std Deviation 42.6 (36.4-46.3) fL RDW Coeff of Kaden 13.0 (11.5-14.5) % Plt Count 168 (130-400) K/uL MPV 10.8 H (7.4-10.4) fL Immature Gran % (Auto) 0.4 % Neut % (Auto) 66.9 % Lymph % (Auto) 16.4 % Nobles % (Auto) 14.8 % Eos % (Auto) 1.2 % Baso % (Auto) 0.3 % Immature Gran # (Auto) 0.05 H (0.00-0.02) K/uL Neut # (Auto) 7.97 H (1.4-6.5) K/uL Lymph # (Auto) 1.96 (1.2-3.4) K/uL Nobles # (Auto) 1.76 H (0.11-0.59) K/uL Eos # (Auto) 0.14 (0-0.5) K/uL Baso # (Auto) 0.04 (0-0.2) K/uL Sodium 136 (136-145) mmol/L Potassium 3.8 (3.5-5.1) mmol/L Chloride 109 H (98-107) mmol/L Carbon Dioxide 24 (21-32) mmol/L Anion Gap 3.0 (3-11) BUN 14 (7-18) mg/dl Creatinine 0.87 (0.6-1.4) mg/dl Est Cr Clr Drug Dosing 146.6 ml/min Est GFR ( Amer) 121.7 Est GFR (Non-Af Amer) 105.0 BUN/Creatinine Ratio 16.5 (10-20) Glucose 56 L (70-99) mg/dl POC Glucose 45 L* (70-99) Calcium 7.5 L (8.5-10.1) mg/dl Magnesium 2.0 (1.8-2.4) mg/dl 03/18/19 03/18/19 Range/Units 21:10 18:03 WBC (4.8-10.8) K/uL RBC (4.7-6.1) M/uL Hgb (14.0-18.0) g/dL Hct (42-52) % MCV (80-100) fL MCH (25-34) pg MCHC (32-36) g/dL RDW Std Deviation (36.4-46.3) fL RDW Coeff of Kaden (11.5-14.5) % Plt Count (130-400) K/uL MPV (7.4-10.4) fL Immature Gran % (Auto) % Neut % (Auto) % Lymph % (Auto) % Nobles % (Auto) % Eos % (Auto) % Baso % (Auto) % Immature Gran # (Auto) (0.00-0.02) K/uL Neut # (Auto) (1.4-6.5) K/uL Lymph # (Auto) (1.2-3.4) K/uL Nobles # (Auto) (0.11-0.59) K/uL Eos # (Auto) (0-0.5) K/uL Baso # (Auto) (0-0.2) K/uL Sodium (136-145) mmol/L Potassium (3.5-5.1) mmol/L Chloride (98-107) mmol/L Carbon Dioxide (21-32) mmol/L Anion Gap (3-11) BUN (7-18) mg/dl Creatinine (0.6-1.4) mg/dl Est Cr Clr Drug Dosing ml/min Est GFR ( Amer) Est GFR (Non-Af Amer) BUN/Creatinine Ratio (10-20) Glucose (70-99) mg/dl POC Glucose 168 H 80 (70-99) Calcium (8.5-10.1) mg/dl Magnesium (1.8-2.4) mg/dl Medications Administered Current Inpatient Medications Acetaminophen (Tylenol) 650 mg PO Q4H PRN PRN Reason: pain/fever Stop: 04/17/19 15:38 Last Admin: 03/19/19 05:52 Dose: 650 mg Documented by: Al Hydrox/Mg Hydrox/Simethicone (Maalox) 30 ml PO Q6H PRN PRN Reason: Dyspepsia Stop: 04/17/19 15:38 Dextrose (Dextrose 50%) 25 - 50 ml IV UD PRN; Protocol PRN Reason: Hypoglycemia Protocol Stop: 04/17/19 16:44 Glucagon (Glucagen) 1 mg SQ UD PRN; Protocol PRN Reason: Hypoglycemia Protocol Stop: 04/17/19 16:44 Glucose (Glucose 40%) 15 - 30 gm PO UD PRN; Protocol PRN Reason: Hypoglycemia Protocol Stop: 04/17/19 16:44 Glucose (Dex4 Glucose) 4 - 8 tabs PO UD PRN; Protocol PRN Reason: Hypoglycemia Protocol Stop: 04/17/19 16:44 Last Admin: 03/19/19 08:41 Dose: 8 tabs Documented by: Heparin Sodium (Porcine) (Heparin Sodium (Porcine)) 5,000 units SQ Q8 CLIVE Stop: 04/17/19 21:59 Last Admin: 03/19/19 05:17 Dose: 5,000 units Documented by: Vancomycin HCl 1,750 mg/ (Sodium Chloride) 535 mls @ 200 mls/hr IV Q8H CLIVE; Protocol Stop: 04/29/19 19:59 Last Infusion: 03/19/19 17:11 Dose: Infused Documented by: Cefepime HCl 1,000 mg/ Syringe 11.3 mls @ 5.5 mls/min IV Q8H CLIVE; Protocol Stop: 03/28/19 20:59 Last Admin: 03/19/19 13:20 Dose: 5.5 mls/min Documented by: Insulin Aspart (Novolog Flexpen) 0 units SC ACHS CLIVE; Protocol Stop: 03/19/19 23:59 Last Admin: 03/19/19 13:25 Dose: 11 units Documented by: Insulin Aspart (Novolog Flexpen) 0 units SC Q6 CLIVE; Protocol Stop: 04/19/19 05:59 Insulin Human NPH (Novolin N Nph) 0 units SC HS CLIVE; Protocol Stop: 03/19/19 21:01 Magnesium Hydroxide (Milk Of Magnesia) 30 ml PO Q6H PRN PRN Reason: Constipation Stop: 04/17/19 15:38 Miscellaneous (Remove Nicoderm Patch) 1 ea N/A HS CLIVE Stop: 04/17/19 20:59 Last Admin: 03/18/19 20:56 Dose: 1 ea Documented by: Miscellaneous (Carbohydrates For Hypoglycemia) 15 - 30 gm PO UD PRN PRN Reason: Hypoglycemia Treatment Stop: 04/17/19 16:44 Last Admin: 03/19/19 08:25 Dose: 30 gm Documented by: Miscellaneous Information (Consult) 1 ea N/A UD PRN PRN Reason: Consult Stop: 04/17/19 15:38 Miscellaneous Information (Consult Glycemic Management Pharmacy) 1 ea N/A UD PRN PRN Reason: Consult Stop: 04/18/19 12:02 Morphine Sulfate (Morphine Sulfate) 4 mg IV Q4H PRN PRN Reason: Pain Stop: 04/01/19 19:33 Last Admin: 03/19/19 08:01 Dose: 4 mg Documented by: Nicotine (Nicoderm Cq) 21 mg TD DAILY PRN PRN Reason: nicotine craving Stop: 04/17/19 14:49 Last Admin: 03/18/19 16:09 Dose: 21 mg Documented by: Ondansetron HCl (Zofran) 4 mg IV Q6H PRN PRN Reason: Nausea Stop: 04/17/19 15:38 Polyethylene Glycol (Miralax Powder Packet) 17 gm PO DAILY PRN PRN Reason: Constipation Stop: 04/17/19 15:38 Tramadol HCl (Ultram) 50 mg PO Q4H PRN PRN Reason: Pain Stop: 04/17/19 15:38 Last Admin: 03/18/19 17:30 Dose: 50 mg Documented by: Zolpidem Tartrate (Ambien) 5 mg PO HS PRN PRN Reason: Sleep Stop: 04/17/19 15:38 Resident Activity Tracking Resident Involvement: Resident Care Provided Care Provided: Adult Hospital Medicine (1) Osteomyelitis Laterality: left Osteomyelitis location: foot
[2019-03-19 07:37] LABS: Basophils # (auto) 0.04 K/uL (0-0.2); Basophils % (auto) 0.3 %; Eosinophils # (auto) 0.14 K/uL (0-0.5); Eosinophils % (auto) 1.2 %; Hematocrit (blood only) 38.8 % (42-52); Immature Granulocytes # (auto) 0.05 K/uL (0.00-0.02); Immature Granulocytes % (auto) 0.4 %; Lymphocytes # (auto) 1.96 K/uL (1.2-3.4); Lymphocytes % (auto) 16.4 %; Mean Corpuscular Hgb Conc 33.5 g/dL (32-36); Mean Corpuscular Volume 90.2 fL (80-100); Mean Platelet Volume 10.8 fL (7.4-10.4); Monocytes # (auto) 1.76 K/uL (0.11-0.59); Monocytes % (auto) 14.8 %; Neutrophils # (auto) 7.97 K/uL (1.4-6.5); Neutrophils % (auto) 66.9 %; Platelet Count 168 K/uL (130-400); RDW Standard Deviation 42.6 fL (36.4-46.3); White Blood Count 11.92 K/uL (4.8-10.8)
[2019-03-19] MEDS: MoRPHine SULFATE 4 MG/ML 1 ML CARP\\VIAL IV PRN ×2 (08:01→18:36)
[2019-03-19] MEDS: CARBOHYDRATES FOR HYPOGLYCEMIA PO PRN (08:25)
--- NOTE | 2019-03-19 08:34 | Consultation Report ---
DATE OF CONSULTATION: 03/19/2019 ORTHOPEDIC CONSULT CHIEF COMPLAINT: Left toe infection. HISTORY OF PRESENT ILLNESS: The patient is a 44-year-old long-term insulin-dependent diabetic and smoker, who was admitted yesterday with a left great toe infection. He has been a long-term diabetic. He says this has been bothering for a week or two. No known injury. No other ulcer over infected areas. Some moderate discomfort. A very foul smelling toe. PAST MEDICAL HISTORY: Significant for: 1. Insulin-dependent diabetes. 2. History of smoking. 3. Elevated cholesterol. The remainder of the past medical history is as per the admission H and P. OBJECTIVE: VITAL SIGNS: Temperature is 37.5. Vital signs stable. GENERAL: Physical examination shows a pleasant, middle-aged male. He is lying in bed, looks reasonably comfortable. EXTREMITIES: Examination of the left foot reveals a markedly swollen great toe with an open bleeding wound area with a very foul smell. He has got some cellulitis in the entire forefoot involving his toes back to the metatarsal area, but no further. He can slightly flex and extend his toes. He does seem to have decreased sensation throughout. LABORATORY DATA: White cell count elevated at 17.17 on admission and 11.92 today. Sed rate is elevated at 58. C-reactive protein also elevated. X-RAYS: X-rays of the left foot were reviewed. Shows moderate swelling of the forefoot area. He has got chronic bony changes of the proximal portion of the distal phalanx as well as the distal proximal phalanx of the great toe. ASSESSMENT: A 44-year-old insulin-dependent diabetic with a left great toe infection. Clearly, this has been going on for months if he has got bone destruction and based on this foul smell in appearance of his foot. This is not something that has just been a couple weeks old, but more like a couple months. There is no way he is going to cure this infection short of amputation. PLAN: The patient has been admitted to the hospital with IV antibiotics until we see if we can get his cellulitis calmed down. He is going to need a great toe amputation, we talked about that today and he is considering this. Really, there is no other way to cure this and even with the great toe amputation, the wound may be tenuous and may lose more of his foot. We will let him eat today and continue the IV antibiotics and plan on toe amputation tomorrow if the patient consents. Continue elevation. Any orthopedic questions can be directed to me at [phone].
[2019-03-19] MEDS: GLUCOSE 10 TABS/TUBE PO PRN (08:41)
[2019-03-19 09:11] LABS: BUN Creatinine Ratio 16.5 (10-20); Calcium 7.5 mg/dl (8.5-10.1); Creatinine Clr Calc Pharmacy 146.6 ml/min; Est GFR (African American) 121.7; Potassium 3.8 mmol/L (3.5-5.1)
[2019-03-19] MEDS ORDERED: PHARMACY GLYCEMIC MGMT CONSULT PRN (12:03)
[2019-03-19] MEDS ORDERED: INSULIN HUMAN NPH SC ONE (13:00)
[2019-03-19] MEDS: INSULIN ASPART 100 UNITS/ML 3 ML PEN SC SCH ×3 (13:25→21:41)
--- NOTE | 2019-03-19 13:25 | Anesthesiology Consultation ---
Date of Service March 19, 2019 Assessment & Plan (1) Encounter for pre-operative examination: Chart Review Chart Review: Acceptable Risk for Surgery and Patient NOT seen in Pre Admission Testing will need to check BSG AM of surgery Consults Requested none History Surgery Operation Date: 03/20/19 07:00 Proposed Procedures p Left Great Toe Amputation - Ignacio Craig MD Height/Weight Height: 6 ft 4 in Weight: 109 kg Allergies Allergy/AdvReac Type Severity Reaction Status Date / Time Penicillins Allergy Rash Unverified 03/18/19 12:51 Medications Home Medications Medication Instructions Recorded Confirmed Last Taken insulin lispro [Humalog U-100 130 - 140 units SUBCUT DIRECTED 03/18/19 03/18/19 Unknown Insulin] Active Medications Generic Name Dose Route Start Last Admin Trade Name Freq PRN Reason Stop Dose Admin Acetaminophen 650 mg 03/18/19 15:39 03/19/19 05:52 Tylenol PO 04/17/19 15:38 650 mg Q4H PRN Administration pain/fever Glucose 4 - 8 tabs 03/18/19 16:45 03/19/19 08:41 Dex4 Glucose PO 04/17/19 16:44 8 tabs UD PRN Administration Hypoglycemia Protocol Protocol Heparin Sodium (Porcine) 5,000 units 03/18/19 22:00 03/19/19 05:17 Heparin Sodium (Porcine) SQ 04/17/19 21:59 5,000 units Q8 CLIVE Administration Vancomycin HCl 1,750 mg/ 535 mls @ 200 mls/hr 03/18/19 20:00 03/19/19 13:15 Sodium Chloride IV 04/29/19 19:59 200 mls/hr Q8H CLIVE Administration Protocol Cefepime HCl 1,000 mg/ Syringe 11.3 mls @ 5.5 mls/min 03/18/19 21:00 03/19/19 04:49 IV 03/28/19 20:59 5.5 mls/min Q8H CLIVE Administration Protocol Miscellaneous 1 ea 03/18/19 21:00 03/18/19 20:56 Remove Nicoderm Patch N/A 04/17/19 20:59 1 ea HS CLIVE Administration Miscellaneous 15 - 30 gm 03/18/19 16:45 03/19/19 08:25 Carbohydrates For Hypoglycemia PO 04/17/19 16:44 30 gm UD PRN Administration Hypoglycemia Treatment Morphine Sulfate 4 mg 03/18/19 19:34 03/19/19 08:01 Morphine Sulfate IV 04/01/19 19:33 4 mg Q4H PRN Administration Pain Nicotine 21 mg 03/18/19 14:50 03/18/19 16:09 Nicoderm Cq TD 04/17/19 14:49 21 mg DAILY PRN Administration nicotine craving Tramadol HCl 50 mg 03/18/19 15:39 03/18/19 17:30 Ultram PO 04/17/19 15:38 50 mg Q4H PRN Administration Pain Past Medical History Medical History Osteomyelitis (Acute) Left great toe and cellulitis Dyslipidemia (Chronic) Diabetes (Chronic) Insulin-dependent. Juvenile onset Tobacco use smoker Past Surgical History none Social History Smoking Status: Current every day smoker tobacco type: cigarettes Smoking cigarettes per day: 20 Do You Dip or Chew Tobacco: No Hx Alcohol Use: Yes Alcohol type: beer and hard liquor alcohol intake frequency: a few times a month Hx Substance Use: No Physical Exam Vital Signs Last Vital Signs Temp 37.5 C 03/19/19 07:17 Pulse 76 03/19/19 07:17 Resp 16 03/19/19 07:17 BP 116/70 03/19/19 07:17 Pulse Ox 95 03/19/19 07:17 Testing Laboratory Results 03/19/19 06:45 03/19/19 06:45 PT 12.4 Seconds (9.0-12.0) H 03/18/19 11:20 INR 1.2 (0.9-1.1) H 03/18/19 11:20 03/18/19 11:15 Gram Stain - Final Toe,Left Great 03/19/19 03/19/19 03/19/19 12:08 09:00 08:58 POC Glucose 146 H 78 67 L* 03/19/19 03/19/19 03/19/19 08:38 08:36 08:19 POC Glucose 49 L* 50 L* 43 L* 03/19/19 08:18 POC Glucose 45 L*
--- NOTE | 2019-03-19 14:31 | Pharmacy Report ---
Glycemic Control Consultation - Date of Service March 19, 2019 - Scope Scope: Glycemic Pharmacist consulted by Dr Stacy on 03/19/19 for glycemic control and to write orders per [facility] inpatient glycemic control protocol - Objective Weight: 109 kg Accuchecks BSG (last 24hrs): 03/18/19 03/18/19 03/18/19 17:46 17:48 18:03 Glucose POC Glucose 62 L* 66 L* 80 03/18/19 03/19/19 03/19/19 21:10 06:45 08:18 Glucose 56 L POC Glucose 168 H 45 L* 03/19/19 03/19/19 03/19/19 08:19 08:36 08:38 Glucose POC Glucose 43 L* 50 L* 49 L* 03/19/19 03/19/19 03/19/19 08:58 09:00 12:08 Glucose POC Glucose 67 L* 78 146 H Laboratory Data (last 24hrs): 03/19/19 06:45 Potassium 3.8 Carbon Dioxide 24 Anion Gap 3.0 Creatinine 0.87 Est Cr Clr Drug Dosing 146.6 - Recent Pertinent Medications Outpatient Anti-diabetic Regimen: * Novolog Pump * Basal: 0000: 2.7units/hr 0400: 2.5units/hr 22: 2.7units/hr * SF: 25 * CR 3.5 to 4.5 * A1c = 6.8 % 10/26/18 Risk Factors for Insulin Resistance: * Recent Surgery: Surgery planned for tomorrow morning amputation of left big toe * Diet: Type 2 DM - Assessment & Plan Assessment & Plan: ASSESSMENT: * 44 year old male type 1 diabetic managed by insulin pump, settings as above. * Admitted with left great toe cellulitis/osteomyelitis, treating with IV Vancomycin and Cefepime at this time. * Patient scheduled for Left Great Toe Amputation by Dr Craig tomorrow. * Patient with persistent hypoglycemia this morning on pump, pt was unaware of low BSG * To prevent further hypoglycemia, especially with upcoming NPO status for surgery tomorrow, will change patient to basal bolus insulin therapy for this time * Will use NPH for basal insulin for easier titration on and off of insulin pump * Patient uses ~ 120 units of insulin per day, about 60 units basal and 60 units bolus * I will begin with half of the daily basal dose, slightly reduced for persistent hypoglycemia this morning, begin with lunch * Will determine AM dose of NPH after blood sugars are reviewed over the next 12-18 hours * Updated A1c ordered * ADA & AACE recommend a goal blood sugar range 140-180 mg/dl for the majority of critically ill & non-critically ill patients. However, more stringent targets may be selected in individual cases. Will utilize more stringent goal of 110-140mg/dl based on patient age & comorbidities. Additionally, tighter glycemic control is warranted to facilitate wound/infection healing. PLAN FOR INPATIENT GLYCEMIC CONTROL: * Holding outpatient insulin pump - turned off at 12:45pm * Basal insulin * NPH 25 units SQ x 1 today at 1300 * Then tonight based on BSG * BSG < 110mg/dl - 10 units * BSG 110-140mg/dl - 15 units * BSG >140mg/dl - 20 units * AM NPH order will be decided after we see how patient responds over the next 12-18 hours * Bolus insulin * NovoLog per scale ACHS or Q6hrs while NPO * Goal Range: Low 110 mg/dL - High 140 mg/dL * Correction Factor: 20 mg/dL/unit * Nutritional / Prandial insulin per carb ratio of 1 unit per 5 grams CHO consumed * Please note that the plan above was derived based on current level of insulin resistance and hospital stress. These recommendations are appropriate for in patient admission only. Plan of care upon discharge will need to be reassessed to avoid potential outpatient hypo/hyperglycemia. Thank you.
[2019-03-19] MEDS ORDERED: hydrOXYzine HCl 10 MG TAB PO PRN (18:31)
[2019-03-19] MEDS ORDERED: INSULIN HUMAN NPH SC SCH (21:00)
[2019-03-20] MEDS ORDERED: VANCOMYCIN TROUGH ONE (03:30)
[2019-03-20 03:39] LABS: Basophils # (auto) 0.04 K/uL (0-0.2); Basophils % (auto) 0.4 %; Eosinophils # (auto) 0.35 K/uL (0-0.5); Eosinophils % (auto) 3.3 %; Hematocrit (blood only) 37.3 % (42-52); Hemoglobin 12.7 g/dL (14.0-18.0); Immature Granulocytes # (auto) 0.04 K/uL (0.00-0.02); Immature Granulocytes % (auto) 0.4 %; Lymphocytes # (auto) 2.11 K/uL (1.2-3.4); Lymphocytes % (auto) 20.2 %; Mean Corpuscular Volume 89.7 fL (80-100); Mean Platelet Volume 10.2 fL (7.4-10.4); Monocytes % (auto) 12.4 %; Neutrophils # (auto) 6.61 K/uL (1.4-6.5); Neutrophils % (auto) 63.3 %; Platelet Count 155 K/uL (130-400); RDW Coefficient of Variation 12.8 % (11.5-14.5); RDW Standard Deviation 41.6 fL (36.4-46.3); Red Blood Count 4.16 M/uL (4.7-6.1); White Blood Count 10.45 K/uL (4.8-10.8)
[2019-03-20 04:00] LABS: BUN Creatinine Ratio 11.8 (10-20); Calcium 7.9 mg/dl (8.5-10.1); Creatinine Clr Calc Pharmacy 125.1 ml/min; Est GFR (African American) 103.1; Potassium 4.2 mmol/L (3.5-5.1)
[2019-03-20] MEDS: VANCOMYCIN HCL 1,750 MG in SODIUM CHLORIDE 0.9% 500 ML IV SCH ×3 (04:36→20:43)
[2019-03-20] MEDS: CEFEPIME 1,000 MG in SYRINGE 0 ML IV SCH ×3 (04:37→20:42)
[2019-03-20] MEDS ORDERED: PROPOFOL IV EMULSION 10 MG/ML 20 ML VIAL IV ONE (06:47)
[2019-03-20] MEDS ORDERED: MIDAZOLAM HCL 1 MG/ML 2ML VIAL ONE ×2 (06:47)
[2019-03-20] MEDS ORDERED: fentaNYL citrate 100 MCG/2 ML VIAL ONE ×2 (06:47→07:25)
[2019-03-20] MEDS ORDERED: LIDOCAINE HCL 2% 2 ML VIAL/AMP(20MG/ML) INFIL ONE (06:47)
--- NOTE | 2019-03-20 06:49 | History & Physical Bridge Note ---
Date of Service March 20, 2019 History & Physical Bridge Note I have examined the patient, reviewed the History & Physical and in the interval since the performance of the History & Physical I have noted the following changes of clinical significance: no changes noted
[2019-03-20] MEDS: INSULIN ASPART 100 UNITS/ML 3 ML PEN SC SCH ×4 (07:00→21:48)
[2019-03-20 07:03] LABS: Estimated Average Glucose 160 mg/dl; Hemoglobin A1C 7.2 % (4.5-5.6)
[2019-03-20] MEDS ORDERED: BACITRACIN INJ 50,000 UNIT VIAL ONE (07:06)
[2019-03-20] MEDS ORDERED: ONDANSETRON INJ 2 MG/ML 2 ML VIAL ONE (07:29)
[2019-03-20] MEDS ORDERED: INSULIN HUMAN NPH SC ONE (07:30)
--- NOTE | 2019-03-20 08:03 | Post Operative Brief Note ---
Immediate Post Op Note v1 Date of Surgery March 20, 2019 Pre & Post Diagnosis Operation Date: 03/20/19 07:15 Pre-Op Diagnosis: Osteomyelitis Left great toe and cellulitis Post-Op Diagnosis: Osteomyelitis left great toe and cellulitis Procedure Operation Date: 03/20/19 07:15 Actual Procedures p Left Great Toe Amputation(Left) - Ignacio Craig MD Surgeon Ignacio Craig MD Belt Glass Sander None Estimated Blood Loss 30 Findings Consistent with Post-Op Diagnosis Specimens Left Great Toe Anesthesia Type General Complications none Disposition Accompanied Patient To Recovery: No Disposition: Recovery Room
[2019-03-20] MEDS ORDERED: LABETALOL HCL IV 5 MG/ML 20ML IV PRN (08:15)
[2019-03-20] MEDS ORDERED: ONDANSETRON INJ 2 MG/ML 2 ML VIAL IV PRN ×2 (08:15→09:12)
[2019-03-20] MEDS ORDERED: NALOXONE HCL 0.4 MG/1 ML VIAL/CARP IV PRN ×2 (08:15→09:12)
[2019-03-20] MEDS ORDERED: PROMETHAZINE HCL 12.5 MG in SODIUM CHLORIDE 0.9% 50 ML IV PRN (08:15)
[2019-03-20] MEDS ORDERED: ePHEDrine sulfate 50 MG/ML AMP IV PRN (08:15)
[2019-03-20] MEDS ORDERED: FLUMAZENIL 0.1 MG/1 ML 10 ML VIAL IV PRN (08:15)
[2019-03-20] MEDS ORDERED: HYDROmorphone INJ 1 MG/ML SYRINGE IV PRN (08:15)
[2019-03-20] MEDS ORDERED: ATROPINE SULFATE 0.1 MG/ML 10ML SYR IV PRN (08:15)
--- NOTE | 2019-03-20 08:44 | Anesthesiology Progress Note ---
Date of Service March 20, 2019 Anesthesia Post Procedure Vital Signs Vital Signs: Temp Pulse Pulse Pulse Resp BP BP 03/20/19 08:30 70 22 135/72 03/20/19 08:20 74 20 123/65 03/20/19 08:10 36.3 C L 78 21 119/74 03/20/19 06:52 37.3 C 77 18 155/85 H 03/20/19 06:45 37.3 C 71 16 129/72 03/19/19 23:33 38.2 C H 78 16 115/64 03/19/19 15:57 37.6 C H 76 16 113/69 Pulse Ox 03/20/19 08:30 98 03/20/19 08:20 99 03/20/19 08:10 98 03/20/19 06:52 03/20/19 06:45 94 03/19/19 23:33 92 03/19/19 15:57 95 Pain Intensity Left Toe: Pain Intensity: 2 Transfer of Care Handoff Completed per policy Notes Mental Status: alert / awake / arousable Patient Amnestic to Procedure: Yes Nausea / Vomiting: adequately controlled Pain: adequately controlled Airway Patency, RR, SpO2: stable & adequate BP & HR: stable & adequate Hydration State: stable & adequate Anesthetic Complications: no major complications apparent
[2019-03-20] MEDS ORDERED: MAGNESIUM HYDROXIDE SUSP 30 ML UDC PO PRN (09:12)
[2019-03-20] MEDS ORDERED: SODIUM CHLORIDE 0.9% 1000ML 1,000 ML IV SCH (09:12)
[2019-03-20] MEDS ORDERED: METOCLOPRAMIDE HCL INJ 5 MG/ML 2 ML VIAL IV PRN (09:12)
[2019-03-20] MEDS ORDERED: PHARMACY GLYCEMIC MGMT CONSULT STA (09:12)
[2019-03-20] MEDS ORDERED: BISACODYL 10 MG SUPP PR PRN (09:12)
--- NOTE | 2019-03-20 09:18 | Pharmacy Report ---
Pharmacy Abx Dose Short Note - Date of Service March 20, 2019 - Assessment & Plan Assessment 44 year old M receiving vancomycin and cefepime for treatment of diabetic foot infection with L toe osteomyelitis Day # 3 of antimicrobial therapy. Patient for L toe amputation today. SCr remains stable. Blood cultures - NGTD L toe - gram stain showing gram positives and gram negatives Plan Vancomycin * Trough level of 16.5 mcg/mL is therapeutic * Continue dose of 1750 mg IV every 8 hours * Goal trough level for osteo : 15 to 20 mcg/mL * Repeat trough level ordered for: 03/22/19 prior to the 0400 dose to assess for accumulation Cefepime * Not dosed by pharmacy but is appropriate for indication/renal function Pharmacy will continue to follow and will adjust dose/frequency as necessary. Thank you.
[2019-03-20] MEDS: HYDROmorphone INJ 0.5 MG/0.5 ML SYR IV PRN ×2 (09:45→13:39)
--- NOTE | 2019-03-20 10:02 | Operative Report ---
DATE OF OPERATION: 03/20/2019 SURGEON: Ignacio Craig MD TOOLING ENGINEER: None. PREOPERATIVE DIAGNOSIS: Left great toe infection with underlying osteomyelitis. POSTOPERATIVE DIAGNOSIS: Left great toe infection with underlying osteomyelitis. PROCEDURE PERFORMED: Left great toe amputation. COMPLICATIONS: None. ESTIMATED BLOOD LOSS: 30 mL. FLUID REPLACEMENT: 800 mL crystalloid fluid replacement. TOURNIQUET TIME: 70 minutes at 300 mmHg. ANESTHESIA: General. SPECIMENS: Left toe sent for pathology. OPERATIVE INDICATIONS: The patient is a 44-year-old gentleman and long-term insulin-dependent diabetic, is all well smoker, who has had a several-week to month history of left toe infection. This progressed over time. He was admitted to the hospital with cellulitis and obvious open wound with a very foul smelling odor and bone destruction to beneath. He was placed on IV antibiotics. He is indicated for a toe amputation for chronic osteomyelitis. OPERATIVE FINDINGS: Operative findings revealed extensive osteomyelitis of the great toe. There was some infection of the soft tissues, tracking back to the MTP joint area. OPERATIVE PROCEDURE: The patient was taken to the operating room, identified and placed on the operating table in supine position. All contact areas were appropriately padded. The patient just received his dose of IV vancomycin. General anesthetic was implemented by the anesthesia team. A left ankle tourniquet was then placed. We then scrubbed the foot with Hibiclens followed by a Betadine and then prepped it with Betadine prep. The left foot was then draped in the usual sterile fashion. The left leg was elevated, but not exsanguinated. The tourniquet was placed at 300 mmHg. A fish-mouth type incision was made over the proximal portion of the great toe just in the proximal area, proximal to any wounds. Sharp dissection was carried through subcutaneous tissue directly down to the bone. I then skeletonized the bone and disarticulated the first MTP joint and send it off. We then discarded this, changed all instruments. I did have to shorten the dorsal flap as there was some purulence extending back to the extensor tendon, most severe in the dorsal side. I debrided some of the subcutaneous tissues of necrotic fat. I then used a saw to resect some of the metatarsal head as I need to decrease the bulk of this in order to be get adequate soft tissue coverage. I then rongeured off the metatarsal head remnant to round off the bone. I then resected the medial sesamoid as well. I got down to reasonably clean tissue at this point, but I really was not confident enough to close the wound that was cleaned enough. I irrigated the wound extensively. I identified both the flexor and extensor tendons, applied traction and then cut these and let them retract. I then let the tourniquet down for a tourniquet time of 70 minutes. Hemostasis was assured with use of electrocautery. I irrigated the wound again. I then closed the medial aspect of the wound with 3-0 nylon suture. I left the distal end of the wound open with plans of placing a wound VAC later on. The wound was packed with iodoform-soaked gauze and then dressed with Xeroform, 4 x 4s, sterile cast padding, and Coban wrap. The patient was then placed in a postop shoe. The patient was brought out of general anesthesia and transferred to the recovery room in stable condition. The patient tolerated the procedure well with no complication. All needle and sponge counts were correct at the end of the operation. I attest to the content of the Intraoperative Record and any orders documented therein. Any exception s are noted below.
[2019-03-20] MEDS: MULTIVITAMIN TAB PO SCH (10:30)
[2019-03-20] MEDS: DOCUSATE SODIUM 100 MG CAP PO SCH ×2 (10:30→20:42)
[2019-03-20] MEDS: ASPIRIN 81 MG ECTAB PO SCH ×2 (10:30→20:42)
--- NOTE | 2019-03-20 15:41 | Family Medicine Progress Note ---
Date of Service March 20, 2019 Assessment & Plan (1) Osteomyelitis: 44 y/o M Hx DM I, prior LE ulcer, smoker presents with a purulent ulcerating infection of his L great toe, with extending erythema. Cellulitis and osteomyelitis of L great toe, s/p L great toe amputation Foot CXR confirms osteomyelitis. Ortho consulted, recs appreciated. s/p L great toe amputation 03/20/19. Wound care consulted. - Continue IV abx vancomycin and cefepime - De-escalate abx based on pending wound culture (stain shows G+ cocci, G+ bacilli, G- bacilli) and blood culture - PRN pain control: hydromorphone, morphine, tramadol, acetaminophen - Constipation ppx: docusate, sennoside, miralax - PRN nausea: ondansetron, metoclopramide - PT/OT ordered - Continue wound care DM I Last A1C was 6.8. Personal insulin pump DCd, pharmacy glycemic consult placed. - Insulin mx per pharmacy Tobacco abuse Cessation encouraged, in contemplative stage - Nicotine patch ordered - Has tried bupropion but made his insomnia worse. Has not tried Chantix yet -- would be willing to try, defer to PCP Insomnia/?sleep apnea Pt complains of difficulty maintaining sleep, has witnessed apneic events - Vistaril hs PRN - Recommend outpatient sleep study Stress Pt does state his father attempted suicide, and has significant psych history as well, she states she has attempted suicide, so pt does have some risk factors for stress, but denies depression or suicidality himself. FEN/GI: heart healthy/diabetic diet. DVT ppx: Aspirin BID CODE STATUS: full (2) Diabetes: (3) Dyslipidemia: (4) Smoker: (5) Insomnia: Supervising Physician Co-Signing Physician Notes Resident Physician Supervision Note: I independently interviewed and examined the patient and verified the turner history and physical, reviewed labs and image studies, discussed the case with the resident Dr. Oviedo and agree with the findings and care plan. Subjective Patient seen in bed post toe amputation. States he is doing fine, as pain medication is helping control pain symptoms from a 9/10 down to a 2/10. Patient states he is otherwise denies fevers/chills/sweats since commencing antibiotics on admission. He tolerated PO intake post surgery without abdo pain, N/V. No CP, SOB. He has no questions at present. Review of Systems Review of Systems: All systems reviewed & are unremarkable except as noted in HPI & below Physical Exam Constitutional: WD/WN, vitals as above well developed, well nourished and + obese; no acute distress and not ill appearing Eyes: no conjunctival abnormality and no scleral abnormality ENMT: external ear and nose normal, oropharynx normal Neck: normal visual inspection Respiratory: normal respiratory effort, lungs clear to auscultation Cardiovascular: RRR, no murmur, no edema Extremities: normal capillary refill; no calf tenderness and no edema Gastrointestinal (Abdomen): normal bowel sounds, soft, nontender, no hepatosplenomegaly Percussion/Palpation: no guarding and abdomen not rigid Musculoskeletal: Head/Neck/Chest: normocephalic, head atraumatic and neck supple Skin: + wound (Left foot dressed and in boot) Neurologic: normal touch/pain/proprioception and moves all extremities; no focal motor deficits Psychiatric: Orientation: alert and oriented x 3 Speech: normal rate/rhythm/volume of speech Affect: + flat affect Results & Data Vital Signs (Past 12 Hours) Vital Signs Temp Pulse Pulse Pulse Resp BP BP 03/20/19 15:19 36.6 C 72 20 127/65 03/20/19 12:12 36.7 C 71 16 126/74 03/20/19 11:18 76 16 124/70 03/20/19 10:05 37.1 C 71 16 123/70 03/20/19 09:40 36.7 C 71 16 123/70 03/20/19 09:07 36.8 C 70 20 119/70 03/20/19 08:50 72 18 117/62 03/20/19 08:40 36.7 C 71 19 128/70 03/20/19 08:30 70 22 135/72 03/20/19 08:20 74 20 123/65 03/20/19 08:10 36.3 C L 78 21 119/74 03/20/19 06:52 37.3 C 77 18 155/85 H 03/20/19 06:45 37.3 C 71 16 129/72 Pulse Ox 03/20/19 15:19 95 03/20/19 12:12 95 03/20/19 11:18 93 03/20/19 10:05 95 03/20/19 09:40 95 03/20/19 09:07 95 03/20/19 08:50 93 03/20/19 08:40 93 03/20/19 08:30 98 03/20/19 08:20 99 03/20/19 08:10 98 03/20/19 06:52 03/20/19 06:45 94 Laboratory Results Laboratory Results - last 24 hr 03/19/19 03/19/19 03/20/19 17:43 21:09 01:14 WBC RBC Hgb Hct MCV MCH MCHC RDW Std Deviation RDW Coeff of Kaden Plt Count MPV Immature Gran % (Auto) Neut % (Auto) Lymph % (Auto) Kenton % (Auto) Eos % (Auto) Baso % (Auto) Immature Gran # (Auto) Neut # (Auto) Lymph # (Auto) Kenton # (Auto) Eos # (Auto) Baso # (Auto) Sodium Potassium Chloride Carbon Dioxide Anion Gap BUN Creatinine Est Cr Clr Drug Dosing Est GFR ( Amer) Est GFR (Non-Af Amer) BUN/Creatinine Ratio Glucose POC Glucose 100 H 85 110 H Estimat Average Glucose Hemoglobin A1c Calcium Vancomycin Trough 03/20/19 03/20/19 03/20/19 03:24 03:24 03:24 WBC 10.45 RBC 4.16 L Hgb 12.7 L Hct 37.3 L MCV 89.7 MCH 30.5 MCHC 34.0 RDW Std Deviation 41.6 RDW Coeff of Kaden 12.8 Plt Count 155 MPV 10.2 Immature Gran % (Auto) 0.4 Neut % (Auto) 63.3 Lymph % (Auto) 20.2 Kenton % (Auto) 12.4 Eos % (Auto) 3.3 Baso % (Auto) 0.4 Immature Gran # (Auto) 0.04 H Neut # (Auto) 6.61 H Lymph # (Auto) 2.11 Kenton # (Auto) 1.30 H Eos # (Auto) 0.35 Baso # (Auto) 0.04 Sodium 138 Potassium 4.2 Chloride 107 Carbon Dioxide 29 Anion Gap 2.0 L BUN 12 Creatinine 1.02 Est Cr Clr Drug Dosing 125.1 Est GFR ( Amer) 103.1 Est GFR (Non-Af Amer) 89.0 BUN/Creatinine Ratio 11.8 Glucose 102 H POC Glucose Estimat Average Glucose 160 Hemoglobin A1c 7.2 H Calcium 7.9 L Vancomycin Trough 03/20/19 03/20/19 03/20/19 03:24 05:59 08:11 WBC RBC Hgb Hct MCV MCH MCHC RDW Std Deviation RDW Coeff of Kaden Plt Count MPV Immature Gran % (Auto) Neut % (Auto) Lymph % (Auto) Kenton % (Auto) Eos % (Auto) Baso % (Auto) Immature Gran # (Auto) Neut # (Auto) Lymph # (Auto) Kenton # (Auto) Eos # (Auto) Baso # (Auto) Sodium Potassium Chloride Carbon Dioxide Anion Gap BUN Creatinine Est Cr Clr Drug Dosing Est GFR ( Amer) Est GFR (Non-Af Amer) BUN/Creatinine Ratio Glucose POC Glucose 128 H 167 H Estimat Average Glucose Hemoglobin A1c Calcium Vancomycin Trough 16.5 03/20/19 03/20/19 12:22 12:23 WBC RBC Hgb Hct MCV MCH MCHC RDW Std Deviation RDW Coeff of Kaden Plt Count MPV Immature Gran % (Auto) Neut % (Auto) Lymph % (Auto) Kenton % (Auto) Eos % (Auto) Baso % (Auto) Immature Gran # (Auto) Neut # (Auto) Lymph # (Auto) Kenton # (Auto) Eos # (Auto) Baso # (Auto) Sodium Potassium Chloride Carbon Dioxide Anion Gap BUN Creatinine Est Cr Clr Drug Dosing Est GFR ( Amer) Est GFR (Non-Af Amer) BUN/Creatinine Ratio Glucose POC Glucose 332 H* 315 H* Estimat Average Glucose Hemoglobin A1c Calcium Vancomycin Trough Resident Activity Tracking Resident Involvement: Resident Care Provided Care Provided: Adult [facility] Medicine (1) Osteomyelitis Laterality: left Osteomyelitis location: foot
--- NOTE | 2019-03-20 15:51 | Pharmacy Report ---
Pharmacy Glycemic Short Note 2 - Date of Service March 20, 2019 - Glycemic Short BSG Results (Last 24 hours): 03/19/19 03/19/19 03/20/19 17:43 21:09 01:14 Glucose POC Glucose 100 H 85 110 H 03/20/19 03/20/19 03/20/19 03:24 05:59 08:11 Glucose 102 H POC Glucose 128 H 167 H 03/20/19 03/20/19 12:22 12:23 Glucose POC Glucose 332 H* 315 H* OUTPATIENT ANTIDIABETIC REGIMEN: * Novolog Pump * Basal: 0000: 2.7units/hr 0400: 2.5units/hr 22: 2.7units/hr * SF: 25 * CR 3.5 to 4.5 * A1c = 6.8 % 10/26/18 ASSESSMENT: * Patient was switched over from his Novolog pump to basal (NPH) + bolus (Novolog) insulins yesterday due to hypoglycemia. * He received total of 55 units of insulin yesterday, 35 units of which was NPH and 20 units from Novolog. * HS BSG yesterday = 85; so Novolog CR was loosened for this AM. * Fasting BSG at goal today. * Patient went to the OR for his toe amputation early this AM; NPH administration was delayed till 09:40 AM. Additionally a late breakfast was served which was not covered with insulin per nurse. For these reasons, BSG at lunch increased to 332. * Will continue NPH with dinner per scale and also order for tomorrow AM per scale. PLAN FOR INPATIENT GLYCEMIC CONTROL: * Hold patient's own Humalog pump * Basal insulin * NPH BID with morning and evening meals based on scale as follows: * NPH with dinner: for BSG < 110- give 10 units; for BSG 110 - 140- give 15 units; for BSG greater than 140- give 20 units * NPH tomorrow AM: for BSG < 110- give 15 units; for BSG 110 - 160- give 20 units; for BSG greater than 160- give 25 units * Bolus insulin: continued * NovoLog per scale ACHS or Q6hrs while NPO * Goal Range: Low 110 mg/dL - High 140 mg/dL * Correction Factor: 20 mg/dL/unit * Nutritional / Prandial insulin per carb ratio of 1 unit per 7 grams CHO consumed
[2019-03-20] MEDS ORDERED: INSULIN HUMAN NPH SC SCH (16:30)
[2019-03-20] MEDS: MoRPHine SULFATE 4 MG/ML 1 ML CARP\\VIAL IV PRN ×2 (16:38→21:00)
[2019-03-20] MEDS: SENNA 8.6 MG TAB PO SCH (20:43)
[2019-03-20] MEDS: TRAMADOL HCL 50 MG TABLET PO PRN (20:59)
--- NOTE | 2019-03-20 21:31 | Wound Consultation ---
Date of Consultation March 20, 2019 Assessment & Plan (1) Osteomyelitis: s/p amputation today. wound vac saturday inpatient or in office. Thank you for allowing me to participate in care of this patient. History of Present Illness Attending Physician: Ignacio Craig MD 44 year old caucasion male with history of diabetes, dyslipidemia, nicotine dependence and vit D def who is status post amputation of left great toe for osteomyelitis. Patient presented to the ED with 2 weeks worsening wound. Patient states it began to have purulent drainage and redness began to spread over foot. He was taken to OR today by Dr. Craig. I am being consulted for wound vac placement. Allergies Allergy/AdvReac Type Severity Reaction Status Date / Time Penicillins Allergy Rash Unverified 03/18/19 12:51 Home Medications Home Medications Medication Instructions Recorded Confirmed Type insulin lispro [Humalog U-100 130 - 140 units SUBCUT DIRECTED 03/18/19 03/18/19 History Insulin] Patient History Medical History Osteomyelitis (Acute) Left great toe and cellulitis Dyslipidemia (Chronic) Diabetes (Chronic) Insulin-dependent. 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 Beliefs That Will Affect Care: None marital status: Current Living Situation: Spouse current occupational status: employed Other Information That Helps Us Care for You: No Feels Safe at Home: Yes Safety Concerns: Feels Safe At This Time Smoking Status: Current every day smoker Tobacco Type: cigarettes Cigarettes Per Day: 20 Do You Dip or Chew Tobacco: No Second Hand Exposure: Yes Tobacco Cessation Education Requested by Patient: No Hx Alcohol Use: Yes Alcohol type: beer and hard liquor Hx Substance Use: No Review of Systems Review of Systems: All systems reviewed & are unremarkable except as noted in HPI & below Physical Exam Constitutional: WD/WN, vitals as above Eyes: PERRL, conjunctivae normal, anicteric sclerae Respiratory: normal respiratory effort, lungs clear to auscultation Cardiovascular: RRR, no murmur, no edema Skin: wound measures 2.3 x 3 x 1.8cm. This is a surface area of 6.9cm2. Neurologic: awake; not confused Psychiatric: A+Ox3, euthymic affect Results & Data Vital Signs (Past 12 Hours) Vital Signs Temp Pulse Pulse Resp BP Pulse Ox 05/10/19 20:28 37.1 C 77 16 120/69 93 03/20/19 15:19 36.6 C 72 20 127/65 95 03/20/19 12:12 36.7 C 71 16 126/74 95 03/20/19 11:18 76 16 124/70 93 03/20/19 10:05 37.1 C 71 16 123/70 95 03/20/19 09:40 36.7 C 71 16 123/70 95 (1) Osteomyelitis Laterality: left Osteomyelitis location: foot
[2019-03-20] MEDS ORDERED: INSULIN HUMAN REGULAR PER UNIT 4 UNITS in SYRINGE 3.96 ML IV SCH (21:45)
[2019-03-21] MEDS: VANCOMYCIN HCL 1,750 MG in SODIUM CHLORIDE 0.9% 500 ML IV SCH ×2 (04:07→11:37)
[2019-03-21] MEDS: CEFEPIME 1,000 MG in SYRINGE 0 ML IV SCH ×3 (04:08→20:55)
[2019-03-21] MEDS: INSULIN ASPART 100 UNITS/ML 3 ML PEN SC SCH ×6 (04:13→21:56)
[2019-03-21 07:01] LABS: Basophils # (auto) 0.06 K/uL (0-0.2); Basophils % (auto) 0.6 %; Eosinophils % (auto) 5.3 %; Hematocrit (blood only) 38.8 % (42-52); Hemoglobin 13.5 g/dL (14.0-18.0); Immature Granulocytes # (auto) 0.05 K/uL (0.00-0.02); Immature Granulocytes % (auto) 0.5 %; Lymphocytes # (auto) 1.95 K/uL (1.2-3.4); Lymphocytes % (auto) 20.5 %; Mean Corpuscular Hgb Conc 34.8 g/dL (32-36); Mean Platelet Volume 10.5 fL (7.4-10.4); Monocytes # (auto) 0.97 K/uL (0.11-0.59); Monocytes % (auto) 10.2 %; Neutrophils # (auto) 5.97 K/uL (1.4-6.5); Neutrophils % (auto) 62.9 %; Platelet Count 196 K/uL (130-400); RDW Coefficient of Variation 12.7 % (11.5-14.5); RDW Standard Deviation 41.5 fL (36.4-46.3); Red Blood Count 4.36 M/uL (4.7-6.1)
[2019-03-21 07:43] LABS: BUN Creatinine Ratio 14.3 (10-20); Calcium 8.5 mg/dl (8.5-10.1); Est GFR (African American) 121.1; Est GFR (Non-African American) 104.5; Potassium 3.9 mmol/L (3.5-5.1)
[2019-03-21] MEDS ORDERED: INSULIN HUMAN NPH SC SCH (08:00)
[2019-03-21] MEDS: MULTIVITAMIN TAB PO SCH (08:56)
[2019-03-21] MEDS: DOCUSATE SODIUM 100 MG CAP PO SCH ×2 (08:56→20:54)
[2019-03-21] MEDS: ASPIRIN 81 MG ECTAB PO SCH ×2 (09:01→20:54)
--- NOTE | 2019-03-21 09:05 | Progress Note ---
DATE: 03/21/2019 SUBJECTIVE: A 44-year-old gentleman postop day 1 from a left great toe amputation for osteomyelitis. He is doing okay. Pain is controlled. No new complaints. OBJECTIVE: VITAL SIGNS: Temperature is 37.2. Vital signs stable. EXTREMITIES: Examination of the left foot reveals the wound looked relatively clean. There is no obvious pus or residual purulence. He has got good red vascular edges. Cellulitis seemed to be improving in the surrounding area. LABORATORY DATA: White cell count normal at 9.50. Hemoglobin 13.5. Hematocrit 38.8. Electrolytes are stable. Cultures are growing multiple organisms, which would be expected in this open wound. ASSESSMENT: A 44-year-old diabetic postop day 1 from a left great toe amputation, doing pretty well. His pain is controlled. Unfortunately, infection was more extensive than initially anticipated and we had to leave this open to maximize this chance of healing without a larger resection. PLAN: Plan is to place a wound VAC over the open portion of this incision. Unfortunately they do not do that on the weekend. I changed his dressing today. I will change this daily and hopefully get the wound VAC placed on Saturday. We will continue him on IV antibiotics twice in the hospital. On Saturday, I think he can be discharged on oral antibiotics. We will likely put him on Augmentin 500 mg 3 times a day. He can otherwise weightbear as tolerated. DVT prophylaxis, TEDs, SCDs and baby aspirin twice a day. Any orthopedic questions can be directed at [phone].
--- NOTE | 2019-03-21 10:28 | Family Medicine Progress Note ---
Date of Service March 21, 2019 Assessment & Plan (1) Osteomyelitis: Mr. Chow is a 44 year old male with a past medical history of DM I, prior LE ulcer, and tobacco abuse who presented with a purulent ulcerating infection of his L great toe, with extending erythema. Cellulitis and osteomyelitis of L great toe, s/p L great toe amputation Foot CXR confirms osteomyelitis. Ortho consulted, recs appreciated. s/p L great toe amputation 03/20/19. - Initially placed on IV vancomycin and cefepime - bcx drawn on 03/18 negative to date - wound cx growing gram negative bacilli and skin cristhian, awaiting sensitivities - d/c vancomycin today - De-escalate PRN pain control: d/c hydromorphone and morphine. Continue tramadol and acetaminophen - Constipation ppx: docusate, sennoside, miralax - PRN nausea: ondansetron, metoclopramide - PT/OT ordered -> pt safe from an OT standpoint. PT recommends continuing to use walking stick prn, and may benefit from RW for extended distances. - Continue wound care -> pt will have wound vac placed on Saturday (03/23) and can hopefully be discharged on PO abx (ortho planning for PO Augmentin) DM I Last A1C was 6.8. Personal insulin pump DCd, pharmacy glycemic consult placed. - Insulin management per pharmacy Tobacco abuse Cessation encouraged, in contemplative stage - Nicotine patch ordered - Has tried bupropion but made his insomnia worse. Has not tried Chantix yet -- would be willing to try, defer to PCP Insomnia/?sleep apnea Pt complains of difficulty maintaining sleep, has witnessed apneic events - Vistaril hs PRN - Recommend outpatient sleep study FEN/GI: heart healthy/diabetic diet. DVT ppx: Aspirin BID CODE STATUS: Full (2) Diabetes: (3) Dyslipidemia: (4) Smoker: (5) Insomnia: Supervising Physician Co-Signing Physician Notes Resident Physician Supervision Note: I independently interviewed and examined the patient and verified the turner history and physical, reviewed labs and image studies, discussed the case with the resident Dr. Beltran and agree with the findings and care plan. Subjective Mr. Chow reports he feels well today. He states he has no pain whilst lying in bed, but does note some pain to his left foot when ambulating. He has no other complaints at this time. He had a normal BM this AM. Review of Systems Constitutional: no fever and no chills Respiratory: no cough Cardiovascular: no chest pain Gastrointestinal: no abdominal pain, no nausea, no vomiting and no constipation Physical Exam Constitutional: WD/WN, vitals as above Eyes: PERRL, conjunctivae normal, anicteric sclerae Respiratory: normal respiratory effort, lungs clear to auscultation Cardiovascular: RRR, no murmur, no edema Gastrointestinal (Abdomen): normal bowel sounds, soft, nontender, no hepatosplenomegaly Skin: + wound (Left foot dressed and in boot) Neurologic: Motor/Sensory: + sensory deficit (diabetic PN feet) Psychiatric: A+Ox3, euthymic affect Results & Data Vital Signs (Past 12 Hours) Vital Signs Temp Pulse Pulse Resp BP Pulse Ox 03/21/19 07:10 37.2 C 62 16 106/64 90 03/21/19 04:02 37.4 C 66 16 102/60 94 03/21/19 04:01 37.4 C 03/20/19 23:12 37.3 C 66 14 119/68 94 Resident Activity Tracking Resident Involvement: Resident Care Provided Care Provided: Adult Hospital Medicine (1) Osteomyelitis Laterality: left Osteomyelitis location: foot
--- NOTE | 2019-03-21 15:01 | Pharmacy Report ---
Pharmacy Glycemic Short Note 2 - Date of Service March 21, 2019 - Glycemic Short BSG Results (Last 24 hours): 03/20/19 03/20/19 03/20/19 17:37 21:09 21:11 Glucose POC Glucose 164 H 334 H* 334 H* 03/20/19 03/21/19 03/21/19 23:49 04:01 06:37 Glucose 188 H POC Glucose 119 H 101 H 03/21/19 03/21/19 08:24 12:11 Glucose POC Glucose 248 H 281 H OUTPATIENT ANTIDIABETIC REGIMEN: * Novolog Pump * Basal: 0000: 2.7units/hr 0400: 2.5units/hr 22: 2.7units/hr * SF: 25 * CR 3.5 to 4.5 * A1c = 6.8 % 10/26/18 ASSESSMENT: * Patient on insulin pump at home switched to basal (NPH) + bolus (Novolog) insulins due to hypoglycemia. * He received total of 75 units of insulin yesterday * 35 units of basal insulin * 40 units of bolus insulin * also given a 4 unit regular IV bolus at bedtime * Fasting BSG elevated at 248 mg/dL despite good control overnight. Of note, he did receive significantly less basal insulin yesterday compared to home doses (35 units vs. ~ 60 units). His NPH scale has been increased - I anticipate him being given a total of 50 units today. * Post prandial BSGs are elevated today. I suspect this is partially due to basal deficiency since his Novolog CF/CR worked very well yesterday. Will slightly tighten carb ratio only. If improvement not seen, will further tighten to CF/CR 15/5. PLAN FOR INPATIENT GLYCEMIC CONTROL: * Hold patient's own Humalog pump * Basal insulin - increase * NPH BID with morning and evening meals based on scale as follows: * BSG < 110: give 15 units * BSG 110-140: give 20 units * BSG > 140: give 25 units * Bolus insulin: tighten carb ratio * NovoLog per scale ACHS or Q6hrs while NPO * Goal Range: Low 110 mg/dL - High 140 mg/dL * Correction Factor: 20 mg/dL/unit * Nutritional / Prandial insulin per carb ratio of 1 unit per 6 grams CHO consumed
[2019-03-21] MEDS: INSULIN HUMAN NPH SC SCH (18:02)
[2019-03-21] MEDS: CARBOHYDRATES FOR HYPOGLYCEMIA PO PRN (20:32)
[2019-03-21] MEDS: GLUCOSE 10 TABS/TUBE PO PRN (20:51)
[2019-03-21] MEDS: SENNA 8.6 MG TAB PO SCH (20:55)
[2019-03-22] MEDS: INSULIN ASPART 100 UNITS/ML 3 ML PEN SC SCH ×6 (00:06→21:39)
[2019-03-22] MEDS ORDERED: VANCOMYCIN TROUGH ONE (03:30)
[2019-03-22] MEDS: CEFEPIME 1,000 MG in SYRINGE 0 ML IV SCH ×3 (05:57→22:12)
[2019-03-22 06:57] LABS: BUN Creatinine Ratio 15.9 (10-20); Calcium 8.7 mg/dl (8.5-10.1); Creatinine Clr Calc Pharmacy 132.9 ml/min; Est GFR (Non-African American) 95.7; Potassium 4.1 mmol/L (3.5-5.1)
[2019-03-22] MEDS ORDERED: INSULIN HUMAN NPH SC SCH ×3 (08:00→21:00)
[2019-03-22] MEDS: DOCUSATE SODIUM 100 MG CAP PO SCH ×2 (08:47→21:43)
[2019-03-22] MEDS: MULTIVITAMIN TAB PO SCH (08:47)
[2019-03-22] MEDS: ASPIRIN 81 MG ECTAB PO SCH ×2 (08:47→21:43)
--- NOTE | 2019-03-22 08:53 | Progress Note ---
DATE: 03/22/2019 SUBJECTIVE: A 44-year-old insulin dependent diabetic postop day 2 from a left great toe amputation. He is doing okay. He is not having any pain really. No chest pain or shortness of breath. Awaiting wound VAC placement. OBJECTIVE: VITAL SIGNS: Temperature 36.6. Vital signs stable. EXTREMITIES: Physical examination of the left foot reveals some mild residual swelling. The wound looks relatively clean. There is no significant bleeding. No purulence. ASSESSMENT: A 44-year-old gentleman postop day 2 from a left great toe amputation with an open wound. He is doing well. We are awaiting wound VAC placement. Continued antibiotics. PLAN: 1. DVT prophylaxis including thigh-high TEDs, SCDs, and recommended aspirin twice a day. 2. PT/OT. Weightbear as tolerated, but should limit weightbearing in his left foot as much as possible. Elevation as much as possible. 3. IV antibiotics while in the hospital. We will convert him to p.o. with likely Augmentin upon discharge for at least 10-14 days. 4. Disposition: Awaiting wound VAC placement. Once this is placed, we can probably convert him to p.o. Augmentin 500 mg 3 times a day for 2 weeks and we will see what his wound looks like then. It is going to probably be 4-6 weeks to get this wound to heal.
[2019-03-22] MEDS: INSULIN HUMAN NPH SC SCH (09:48)
--- NOTE | 2019-03-22 10:16 | Family Medicine Progress Note ---
Date of Service March 22, 2019 Assessment & Plan (1) Osteomyelitis: Mr. Chow is a 44 year old male with a past medical history of DM I, prior LE ulcer, and tobacco abuse who presented with a purulent ulcerating infection of his L great toe, with extending erythema. Cellulitis and osteomyelitis of L great toe, s/p L great toe amputation Foot CXR confirms osteomyelitis. Ortho consulted, recs appreciated. s/p L great toe amputation 03/20/19. - Initially placed on IV vancomycin and cefepime - bcx drawn on 03/18 negative to date - wound cx growing alcaligenes faecalis and group G beta strep. Alcaligenes sensitive to cefepime, awaiting sensitivities on the strep - d/olinda vancomycin on 03/21, remains on cefepime - Pain control - prn tramadol and acetaminophen, has been taking the occasional tramadol, but otherwise not requiring pain meds - Constipation ppx: docusate, sennoside, miralax - PT/OT ordered -> pt safe from an OT standpoint. PT recommends continuing to use walking stick prn, and may benefit from RW for extended distances. - Continue wound care -> pt will have wound vac placed on Saturday (03/23) and planning to discharge on PO abx (ortho planning for Augmentin 500 mg TID for 2 week) DM I - HbA1C 7.2 on 03/20. Personal insulin pump DCd, pharmacy glycemic consult placed. - Insulin management per pharmacy Tobacco abuse Cessation encouraged, in contemplative stage - Nicotine patch ordered - Has tried bupropion but made his insomnia worse. Has not tried Chantix yet -- would be willing to try, defer to PCP Insomnia/?sleep apnea Pt complains of difficulty maintaining sleep, has witnessed apneic events - Vistaril hs PRN - Recommend outpatient sleep study FEN/GI: heart healthy/diabetic diet. DVT ppx: Aspirin BID, per ortho. Patient ambulating. CODE STATUS: Full Disposition: Anticipate d/c tomorrow (2) Diabetes: (3) Dyslipidemia: (4) Smoker: (5) Insomnia: Supervising Physician Co-Signing Physician Notes Resident Physician Supervision Note: I independently interviewed and examined the patient and verified the turner history and physical, reviewed labs and image studies, discussed the case with the resident Dr. Beltran and agree with the findings and care plan. Subjective Mr. Chow reports he feels well today. He has been up and ambulating around the unit and his room and reports minimal pain. He has not required the use of any IV pain medications. He has no complaints today. He is eager to be discharged tomorrow. He did have an episode of low sugar last night, but states that he is used to this, and that it resolved. Review of Systems Constitutional: no fever and no weakness Cardiovascular: no chest pain Gastrointestinal: no abdominal pain, no nausea, no vomiting and no change in stools Physical Exam Constitutional: WD/WN, vitals as above Respiratory: normal respiratory effort, lungs clear to auscultation Cardiovascular: RRR, no murmur, no edema Gastrointestinal (Abdomen): normal bowel sounds, soft, nontender, no hepatosplenomegaly Skin: + wound (Left foot dressed and in boot) Psychiatric: A+Ox3, euthymic affect Results & Data Vital Signs (Past 12 Hours) Vital Signs Temp Pulse Resp BP Pulse Ox 03/22/19 06:57 36.6 C 64 16 144/75 H 96 03/21/19 22:45 37.1 C 54 L 16 125/66 95 Resident Activity Tracking Resident Involvement: Resident Care Provided Care Provided: Adult Hospital Medicine (1) Osteomyelitis Laterality: left Osteomyelitis location: foot
--- NOTE | 2019-03-22 10:58 | Pharmacy Report ---
Pharmacy Glycemic Short Note 2 - Date of Service March 22, 2019 - Glycemic Short BSG Results (Last 24 hours): 03/21/19 03/21/19 03/21/19 12:11 17:13 20:28 Glucose POC Glucose 281 H 96 67 L* 03/21/19 03/21/19 03/21/19 20:51 21:18 23:35 Glucose POC Glucose 67 L* 118 H 139 H 03/22/19 03/22/19 03/22/19 04:12 06:08 08:11 Glucose 220 H POC Glucose 193 H 258 H OUTPATIENT ANTIDIABETIC REGIMEN: * Novolog Pump * Basal: 0000: 2.7units/hr 0400: 2.5units/hr 22: 2.7units/hr * SF: 25 * CR 3.5 to 4.5 * A1c = 6.8 % 10/26/18 ASSESSMENT: * Patient on insulin pump at home switched to basal (NPH) + bolus (Novolog) insulins due to hypoglycemia. * He received total of 74 units of insulin yesterday * 40 units of basal insulin * 34 units of bolus insulin * Fasting BSG remains elevated; 248 mg/dL. This indicates that patient is not receiving enough NPH in the evening (he was given reduced dose of 15 units last evening due to BSG of 96 mg/dL at that time). I will d/c the NPH scale and order set doses of 20 units with breakfast and 25 units with dinner. * Post prandial BSGs improved with the exception of lunchtime. Carb ratio was tightened yesterday. I will further tighten today. PLAN FOR INPATIENT GLYCEMIC CONTROL: * Hold patient's own Humalog pump * Basal insulin * NPH SQ BID * 20 units with breakfast * 25 units with dinner * Bolus insulin: tighten carb ratio * NovoLog per scale ACHS or Q6hrs while NPO * Goal Range: Low 110 mg/dL - High 140 mg/dL * Correction Factor: 20 mg/dL/unit * Nutritional / Prandial insulin per carb ratio of 1 unit per 5 grams CHO consumed
[2019-03-22] MEDS: TRAMADOL HCL 50 MG TABLET PO PRN ×2 (11:08→15:24)
[2019-03-22] MEDS: GLUCOSE 10 TABS/TUBE PO PRN (17:41)
[2019-03-22] MEDS: SENNA 8.6 MG TAB PO SCH (21:43)
[2019-03-23] MEDS: INSULIN ASPART 100 UNITS/ML 3 ML PEN SC SCH ×3 (00:10→12:49)
[2019-03-23] MEDS: CEFEPIME 1,000 MG in SYRINGE 0 ML IV SCH ×2 (05:25→12:54)
[2019-03-23] MEDS ORDERED: INSULIN HUMAN NPH SC SCH (07:30)
[2019-03-23] MEDS ORDERED: INSULIN ASPART 100 UNITS/ML 3 ML PEN SC SCH (07:30)
--- NOTE | 2019-03-23 07:44 | Progress Note ---
DATE: 03/23/2019 SUBJECTIVE: A 44-year-old diabetic postop day 3 from left great toe amputation. He is doing pretty well. No significant pain. Just waiting for wound VAC placement. OBJECTIVE: VITAL SIGNS: Temperature 36.6. Vital signs stable. GENERAL: Physical examination shows a pleasant, middle-aged male. He is sitting up in his bedside chair and looks comfortable. EXTREMITIES: Examination of the left foot reveals the dressing to be clean, dry and intact. No drainage. ASSESSMENT: A 44-year-old diabetic 3 days out from a left great toe amputation, doing pretty well. We are really just waiting for wound VAC placement. PLAN: Plan is to have wound VAC placement today. Switch him from IV to p.o. antibiotics. I recommend Augmentin 500 mg 3 times a day for the next 2 weeks. I need to follow him up in clinic in about 2 weeks. He can weightbear as tolerated. Elevate his foot as much as possible. Any orthopedic questions can be directed to me at [phone].
[2019-03-23] MEDS: ASPIRIN 81 MG ECTAB PO SCH (08:46)
[2019-03-23] MEDS: DOCUSATE SODIUM 100 MG CAP PO SCH (08:46)
[2019-03-23] MEDS: MULTIVITAMIN TAB PO SCH (08:47)
[2019-03-23] MEDS: TRAMADOL HCL 50 MG TABLET PO PRN (10:02)
--- NOTE | 2019-03-23 11:44 | Discharge Summary ---
Date of Service March 23, 2019 Admission HPI Per Admitting Provider 44 y/o M Hx DM I, prior LE ulcer, smoker. Presents with a purulent ulcerating infection of his L great toe x 2 weeks. He states that he had been treated in a wound clinic in 2017 for an ulcer in the same area. He noticed erythema spreading over his foot extending from the area over the past few days. He has not had fevers, rigors or additional systemic symptoms. Initial labs are not notable for leukocytosis only. A CXR of the foot appears to confirm osteomyelitis. 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 Family: Father committed suicide Mother is alive without medical issues Principal Diagnosis Osteomyelitis, s/p amputation of L hallux Discharge Exam Constitutional WD/WN, vitals as above well developed, well nourished and + obese; no acute distress and not ill appearing Eyes PERRL, conjunctivae normal, anicteric sclerae EOM intact bilaterally; no conjunctival abnormality and no scleral abnormality ENMT external ear and nose normal, oropharynx normal Mouth: + dentition abnormality and + poor dentition Neck normal visual inspection, trachea midline and + facial hair; neck extension not limited Respiratory normal respiratory effort, lungs clear to auscultation normal respiratory effort Auscultation: lungs clear to auscultation bilaterally Cardiovascular RRR, no murmur, no edema Rate/Rhythm: regular rate and regular rhythm Heart Sounds: no murmur Vessels: no carotid bruit Extremities: normal capillary refill; no calf tenderness and no edema Gastrointestinal (Abdomen) normal bowel sounds, soft, nontender, no hepatosplenomegaly Percussion/Palpation: no guarding and abdomen not rigid Musculoskeletal Head/Neck/Chest: normocephalic, head atraumatic and neck supple Spine: normal cervical ROM Skin + wound (Left foot dressed and in boot) Neurologic normal touch/pain/proprioception, moves all extremities and awake; no focal motor deficits and not confused Motor/Sensory: + sensory deficit (diabetic PN feet) Psychiatric A+Ox3, euthymic affect Orientation: alert and oriented x 3 Speech: normal rate/rhythm/volume of speech Affect: + flat affect Discharge Data Allergies Allergy/AdvReac Type Severity Reaction Status Date / Time Penicillins Allergy Rash Unverified 03/18/19 12:51 Consultations 03/18/19 14:01 ED Decision to Admit Stat 03/18/19 14:19 Consult Orthopedic Surgery Stat 03/20/19 09:12 Consult Case Management - Discharge Planning Routine 03/20/19 09:29 Consult Wound Care Provider Routine Procedures Performed Operation Date: 03/20/19 07:15 Actual Procedures p Left Great Toe Amputation(Left) - Ignacio Craig MD Hospital Course (1) Osteomyelitis: Mr. Chow is a 44 year old male with a past medical history of DM I, prior LE ulcer, and tobacco abuse who presented with a purulent ulcerating infection of his L great toe, with extending erythema. Cellulitis and osteomyelitis of L great toe, s/p L great toe amputation Foot CXR confirmed osteomyelitis. Ortho consulted, s/p L great toe amputation 03/20/19. - Initially placed on IV vancomycin and cefepime - bcx drawn on 03/18 negative to date - wound cx growing alcaligenes faecalis and group G beta strep. Alcaligenes sensitive to cefepime - d/olinda vancomycin on 03/21, with continuation of cefipime while inpatient - Pain control - prn acetaminophen, advil. Has used occasional tramadol; will give short course for home, disp #10. - PT/OT ordered -> pt safe from an OT standpoint. PT recommends continuing to use walking stick prn, and may benefit from RW for extended distances. - Continue wound care -> had wound vac placed on Saturday (03/23) and discharged on PO abx (chose cefdinir 300 BID x 10 days due to penicillin allergy) - Will set up with wound care and wound vac management. - Follow with ortho in 2 weeks as planned. DM I - HbA1C 7.2 on 03/20. - Recommend continued care for diabetes Tobacco abuse Cessation encouraged, in contemplative stage - Nicotine patch utilized while inpatient - Has tried bupropion but made his insomnia worse. Has not tried Chantix yet -- would be willing to try, defer to PCP - Discussed necessity in setting of diabetes, now with current wound and to prevent further problems. Insomnia/?sleep apnea Pt complains of difficulty maintaining sleep, has witnessed apneic events - Vistaril hs PRN - Recommend outpatient sleep study, patient vehemently declines. CODE STATUS: Full (2) Diabetes: (3) Dyslipidemia: (4) Smoker: (5) Insomnia: Total Time Total Time Spent Total Time Spent (In Minutes): <30 Discharge Plan Discharge Items Patient Disposition: Home - Home Health Services Reason For Visit: OSTEOMYELITIS Discharge Diagnosis: Amputation of L great toe Condition: Fair Discharge Goals: Decrease discomfort, Improve disease control and Therapeutic intervention Activity: Per 'Additional Instructions' section Activity Comment: Elevate left leg as much as possible. Weightbearing: Left weightbearing Non-emergency contact: Primary Care Provider and Surgeon Call non-emergency contact if: you have any medication questions, your pain is not controlled, your pain is worsening, your pain is concerning for you, you have a fever, your temperature is above 101.5 and your wound pain has increased Follow-up/Referrals: [facility] [Provider Group] (Please, follow up at [facility]. *A nurse will contact you with the appointment information. The clinic is located at [address] [facility] in [place]. If you have any questions, call the clinic at [phone].) Ignacio Craig MD [Surgeon] - 04/03/19 11:50 am (Please, follow up with Dr. Ignacio Craig (orthopedics) on SaturdayApril 03 at 11:50 am. *This office is located at [address] [address] [facility] in [place]. If you need to change this appointment, call the office at [phone].) Paz Hendrix CRNP [Primary Care Provider] - 03/26/19 11:40 am (Please, follow up at [facility] with Paz GOLDMAN on March 26 at 11:40 am. *If you need to change this appointment, call the office at [phone].) Diet: Carb Count or DM1 Addtl Provider Instructions: During this admission you were treated for an infection of your L big toe, which ultimately required amputation of the toe. Continue with your wound care as planned. You will be given an antibiotic for the infection; please complete the entire course of antibiotic. Follow up with ortho as planned in 2 weeks. Follow up with your PCP in the next 7-10 days. IF your wound is worsening or you are in more pain, please consult your surgeon. It is imperative to quit smoking to ensure your wound heals well. Please discuss options to help you with your PCP. Prescriptions: New cefdinir 300 mg capsule 300 mg PO BID 10 Days Qty: 20 RF: 0 tramadol 50 mg tablet 50 mg PO Q6H PRN (Reason: pain) Qty: 10 RF: 0 Continued insulin lispro [Humalog U-100 Insulin] 100 unit/mL solution 130 - 140 units subcut DIRECTED RF: 0 Stand-Alone Forms: [facility], Opioid Pain Management Discharge Orders: Discharge Order (Routine); Ordered 03/23/19 Ordered By: Daisy Harper Admission Data Admit Date/Time: 03/18/19 14:25 Attending Provider: Parag Salas Admit Provider: Fuentes Palencia Primary Care Provider: Paz Hendrix Other Providers: Fuentes Palencia ; Ignacio Craig ; Narayan Johnson ; Nilsa Stacy Service: Medical Other Interventions: Discharge Summary Assessment (RN) Last Done: 03/23/19 13:01 DC Date/Time DO NOT enter until pt leaves facility: 03/23/19 13:36 Supervising Physician Co-Signing Physician Notes I personally examined the patient and verified all turner points of history and exam, discussed case, and agree with decision making with Dr Fox. Feeling better. Would like to go home, just waiting on wound VAC. Discussed sugar control, which seems to be overall reasonable. Discussed desperate need for smoke cessation, he notes he stopped before successfully and believes he wi ll do well this time as well. Vitals noted, in general he is awake and alert pleasant no distress. Left foot is dressed he has a hospital wound VAC in place at this time. He has no tracking erythema. Skin shows no rashes no pallor or icterus. No focal neuro deficits. Diabetic foot infection/peripheral vascular disease related foot infectionstable for home. Unfortunately has penicillin allergy, but an oral cephalosporin appears to be reasonable choice as well, discharge home on Ceftin ear for now with close outpatient follow-up and wound VAC. Type 1 diabetescontinue insulin management, discussed A1c's. Tobacco abusecounseled on desperate need for cessation. He is quite willing to try. Resident Activity Tracking Resident Involvement: Resident Care Provided Care Provided: Adult Hospital Medicine
[2019-03-24] MEDS ORDERED: INSULIN HUMAN NPH SC SCH (07:30)
== END 2019-03-23 13:36 | disposition home health service (06) | DRG 580 ==
LOC: ED 10:38 → SUATTDRO 14:25 → 3W 14:25